=== PATIENT | male | born 1935 | race Caucasian/White ===

== ENCOUNTER 2017-02-14 07:54 | Inpatient (IN) ==
[2017-02-14] MEDS ORDERED: DOCUSATE SODIUM 100 MG CAPSULE PO PRN (15:35)
[2017-02-14] MEDS ORDERED: Oxycodone *IR* 5 MG TABLET PO PRN (15:35)
[2017-02-14 15:37] VITALS: BMI 23.7
[2017-02-14] MEDS ORDERED: FALL RISK - PHARMACY CONSULT MC PRN (16:23)
[2017-02-14] MEDS: HEPARIN 5,000unit/ml 1ml INJECTION SUB-Q SCH (16:51)
[2017-02-14] MEDS: CARVEDILOL 6.25 MG TABLET PO SCH (17:13)
[2017-02-14] MEDS: Oxycodone *IR* 5 MG TABLET PO SCH ×2 (18:07→21:26)
[2017-02-14] MEDS: ROSUVASTATIN 20 MG TABLET PO SCH (21:26)
[2017-02-14] MEDS: LISINOPRIL 2.5 MG TABLET PO SCH (21:27)
[2017-02-14] MEDS: POLYETHYL GLYCOL 3350 17gm PACKET PO SCH (21:50)
[2017-02-15] MEDS: HEPARIN 5,000unit/ml 1ml INJECTION SUB-Q SCH (01:00)
[2017-02-15] MEDS: Oxycodone *IR* 5 MG TABLET PO SCH ×6 (01:07→21:42)
[2017-02-15] MEDS: PANTOPRAZOLE 40 MG TABLET PO SCH (05:55)
[2017-02-15] MEDS: FERROUS SULFATE 324 MG TABLET PO SCH (08:28)
[2017-02-15] MEDS: FUROSEMIDE 20 MG TABLET PO SCH (08:28)
[2017-02-15] MEDS: POLYETHYL GLYCOL 3350 17gm PACKET PO SCH ×2 (08:28→20:48)
[2017-02-15] MEDS: CARVEDILOL 6.25 MG TABLET PO SCH ×2 (08:28→17:35)
[2017-02-15] MEDS: AMIODARONE 200 MG TABLET PO SCH (08:29)
[2017-02-15] MEDS ORDERED: HEPARIN SUB-Q 5,000 UNITS/0.5 ML INJECTION SQ SCH (09:00)
--- NOTE | 2017-02-15 13:19 | IRU History & Physical Report ---
[facility] Date: Chief complaint: My back hurts and I passed out HPI: History is obtained mainly from the patient and secondarily from transfer records as well as a discussion with the patient's spouse. Mr. Cervantes reports that he was in his driveway on 02/08/2017. He was moving a ladder and states that he climbed up on the ladder about 5 steps. He does not recall the next several minutes but recalls awakening on the ground after having fallen on some yarelis. He does have a small abrasion to the right upper forehead area and therefore believes that he may have hit his head. He does believe that he was unconscious during the time of his fall as he does not recall this. He did have pain in the back. He was transported to the emergency department at [facility] via EMS with a cervical collar. A CT scan of the lumbar spine was done on 02/08/2017 demonstrating an acute L1 burst fracture with involvement of all 3 columns as well as a T12 inferior endplate fracture and possible pedicular fracture. The patient was transported to [facility] in [place]. At that location he was evaluated by the hospitalist service as well as Dr. Molina, spine surgeon. He was also seen by his well reactivator operator Dr. Álvarez. 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 It was the surgeon's recommendation that the fractures be treated conservatively and a back brace was placed. It was recommended the patient be elevated no more than 20 from supine without the brace. Brace is to be applied while he is supine and then used all the time while he is up and about. Recommendations are against any twisting or turning or bending. With regard to his cardiac status, he does have history of congestive cardiomyopathy and valvular heart disease. He reports that he experienced a "heart attack" in 1993. Bypass was apparently done. Aortic valve replacement was performed at that time with a porcine valve. A new valve was placed in 2014 which is reportedly a bovine valve. According to the patient's , the patient's ejection fraction has been stable for at least the past 6 months and is poor. He does have an implanted pacemaker/ defibrillator. He has been on warfarin in the past for his atrial fibrillation but that caused excess bleeding according to the patient. For this reason he is on Eliquis and tolerates that well. He does report occasional episodes of angina. He does have chronic dyspnea with exertion. He does have lightheadedness and the current episode of syncope is likely related to his poor ejection fraction. He denies any peripheral edema. Echocardiogram done during hospitalization in [place] demonstrates ejection fraction 10-15 percent with severe mitral regurgitation. This is referenced in the notes from [place] but I do not have an actual copy of the echocardiogram. Patient is at risk for experiencing significant discomfort in the back from his burst fracture of L1 and T12. He is at high risk for pressure injury. He is at risk for constipation due to the use of pain medications which he is asking for on a regular basis. In addition, the patient needs to be taught how to ambulate safely with his significant lightheadedness related to his underlying congestive cardiomyopathy. Also has history of excessive bleeding and falls may result in significant injury and/or . The following medical conditions are noted and require physician monitoring and treatment. 1. Cardiomyopathy with ejection fraction 10-15 percent. He is at high risk for syncope and lightheadedness and hypotension in this regard. Patient reports episodes of angina which will need to be monitored as well. 2. Risk of bleeding secondary to the fracture and use of Eliquis. He is at risk for falls due to his lightheadedness. 3. Orthostatic hypotension due to #1. 4. Constipation management in conjunction with pain relief for his burst fractures. The following therapies will be needed: 1. Physical therapy: for transfers and ambulation and stairs. 2. Occupational therapy: for ADL's and transfers. 3. Medical management: for the above conditions. 4. 24 hour Rehabilitation Nursing to monitor and address the following: Orthostatic hypotension, back pain, constipation, dyspnea with activity, evidence of angina. Review of Systems - Constitutional Constitutional: Present: as per HPI, fatigue - EENMT Eyes: Absent: blurry vision, change in vision - Cardiovascular Cardiovascular: Present: chest pain, syncope, dyspnea on exertion, heart murmur. Absent: palpitations, orthopnea, edema Rhythm: Present: abnormal rhythm Vascular: Absent: intermittent claudication, pallor of an extermity, pedal edema - Respiratory Respiratory: Present: dyspnea, dyspnea on exertion. Absent: cough, hemoptysis, wheezing, pain on inspiration - Gastrointestinal Gastrointestinal: Present: constipation. Absent: abdominal pain, diarrhea, dyspepsia - Integumentary/Breasts Integumentary: Absent: alopecia - Neurological Neurological: Absent: abnormal gait, memory loss - Psychiatric Psychiatric: Absent: abnormal sleep pattern, anxiety, depression, difficulty concentrating PFS Patient Stated Medical History Hypertension Yes Myocardial Infarction Yes: 1993 Constipation Yes Hx Incontinence No Osteoarthritis Yes: bilateral knees Other Musculoskeletal Yes: T12-L1 Fx Medical History Updates: 1. 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 2. Valvular heart disease involving both mitral and aortic valves. 3. Cardiomyopathy with ejection fraction 1015 percent, likely on an ischemic basis. 4. Atrial fibrillation. 5. Constipation Surgical History: Aortic valve replacement, pacemaker/defibrillator placement, CABG, Cardiac Cath. 1. Aortic valve replacement 2 with most recent replacement in 2014 consisting of a bovine valve. 2. Pacemaker defibrillator placement in approximately . 3. Coronary artery bypass graft procedure 1993. 4. Reported stent placement. 5. Bilateral cataract procedure Family History: Father reportedly of heart attack at an uncertain age. Mother of heart disease as well. - Social History Smoking status: Never smoker second hand exposure: No Substance use type: does not use Alcohol intake: never Alcohol intake frequency: does not drink Housing: house Household members: spouse Current occupational status: retired Does patient use chewing tobacco?: No Current residence: Apartment/Private Home Medications Home Medications Medication Instructions Recorded Confirmed Type Amiodarone HCl 1 tab PO DAILY #0 07/05/15 02/14/17 History Carvedilol 6.25 mg PO BID #0 07/05/15 02/14/17 History Docusate Sodium [Stool Softener] 100 mg PO PM PRN #0 tab 07/05/15 02/14/17 History Furosemide [Lasix] 0.5 tab PO DAILY 02/08/17 02/14/17 History Rosuvastatin Calcium [Rosuvastatin 40 mg PO HS 02/08/17 02/14/17 History Calcium] Acetaminophen 325 - 650 mg PO Q6H PRN 02/14/17 02/14/17 History Ferrous Sulfate 325 mg PO DAILY 02/14/17 02/14/17 History HEPARIN 5,000unit/ml 1 ml SQ Q8H 02/14/17 02/14/17 History Lisinopril [Prinivil] 2.5 mg PO HS 08/06/17 08/06/17 History Oxycodone *Ir* [Roxicodone *Ir*] 5 mg PO Q4H PRN 02/14/17 02/14/17 History Pantoprazole Tab [Protonix Tab] 1 tab PO ACB 02/14/17 02/14/17 History Polyethylene Glycol 3350 [Miralax] 17 gm PO BID 02/14/17 02/14/17 History Allergies Allergy/AdvReac Type Severity Reaction Status Date / Time No Known Allergies Allergy Verified 02/14/17 15:25 Results IRU - Labs Labs: Hemoglobin down. Etiology not clear. Exam Vital Signs: Temperature 98.0 F 02/14/17 19:21 Pulse Rate 60 02/15/17 07:00 Respiratory Rate 18 02/15/17 07:00 Blood Pressure 121/67 02/15/17 07:00 Pulse Oximetry 96 02/15/17 07:00 Oxygen Delivery Method Room Air Height: 1.79 m Weight: 76.2 kg Body Mass Index: 23.7 - Constitutional Present: moderate distress - Routine HEENT Exam Head: Present: normocephalic Eye: Present: EOMI, PERRL ENT: Present: mucous membranes moist - Routine Neck Exam Present: supple, full ROM - Routine Respiratory Exam Present: dyspnea, CTA bilaterally. Absent: accessory muscle use, respiratory distress, wheezes - Routine Cardiovascular Exam Present: murmur (low pitched systolic/holosystolic murmur left sternal border. Systolic murmur second right interspace.), irregularly irregular - Routine Abdominal Exam Present: soft, normoactive bowel sounds, non distended, non tender - Routine Extremities Exam Present: non tender. Absent: cyanosis, edema - Routine Skin Exam Present: intact, dry. Absent: erythema - Routine Neurological Exam Present: alert, oriented X3, CN II-XII intact - Routine Psychiatric Exam Present: normal affect, normal thought process, cooperative, good insight, good judgment Sepsis Assessment - Evaluation Sepsis screening result: No Definite Risk SIRS Criteria: none Severe Sepsis: none seen - Focused Exam Date exam was performed: 02/15/17 Time exam was performed: 10:35 Respiratory exam: Present: dyspnea, CTA bilaterally. Absent: accessory muscle use Cardiovascular exam: Present: murmur, irregularly irregular IRU A/P (1) L1 vertebral fracture Qualifiers: Encounter type: subsequent encounter Fracture morphology: burst- stable Fracture healing: with routine healing Current visit: Yes Status: Acute Patient will avoid twisting, bending and will always wear the brace when elevated more than 20. Patient will work with physical therapy and occupational therapy to learn appropriate ways of dressing, transfers and ambulation. (2) Fracture of T12 vertebra Qualifiers: Encounter type: subsequent encounter Fracture type: closed Fracture morphology: burst- stable Current visit: Yes Status: Acute (3) Cardiomyopathy, ischemic Current visit: Yes Status: Chronic Ejection fraction is extremely low at 10-15 percent. He does have secondary orthostatic hypotension in this regard. Also complains of occasional angina. He will require education with energy saving techniques for ADLs and ambulation. Nursing will need to monitor him for angina recurrence or worsening heart failure. (4) ASHD (arteriosclerotic heart disease) Current visit: Yes Status: Chronic Patient status post bypass. He does report episodes of angina pectoris which will need to be monitored. (5) Aortic valve disorder Current visit: Yes Status: Chronic It is not clear if his initial lesion was stenosis or regurgitation. Nevertheless he has had 2 aortic valve procedures, the first being in 1993 which was a porcine valve. Valves replaced in 2014 with a bovine valve. He will be monitored for evidence of worsening heart failure or valvular heart disease. (6) Mitral regurgitation Qualifiers: Cardiac valve disease etiology: nonrheumatic Qualified Code(s): I34.0 - Nonrheumatic mitral (valve) insufficiency Current visit: Yes Status: Chronic Has severe mitral regurgitation based on echocardiogram. Currently does not have evidence of pulmonary edema nor excess fluid volume status. (7) Orthostatic hypotension Current visit: Yes Status: Acute (8) Anemia Qualifiers: Anemia type: unspecified type Qualified Code(s): D64.9 - Anemia, unspecified Current visit: Yes Status: Acute It is unclear how long he has had the anemia. We will assess this with iron studies and stool for Hemoccult. This could also be a factor in his orthostatic hypotension. In [place] on February 08 his hemoglobin was 11.5. On February 09 it was 10.1 and on February 10 it was 8.9. (9) Atrial fibrillation Qualifiers: Atrial fibrillation type: chronic Qualified Code(s): I48.2 - Chronic atrial fibrillation Current visit: Yes Status: Acute Patient has been on Eliquis at home. Although the patient is over 79 years old, his weight is above 60 kg and his creatinine remains normal. We will restart 5 mg twice daily and stop the heparin. DVT Prophylaxis: SCD's, Eliquis - Course Hospital Course: Kendell Vargas MD: - Interventions to Obtain Goals PT Treatment Plan: Balance/Proprioception, Functional Activities, Gait Training , Patient/Family Education, Therapeutic Exercise OT Treatment Plan: ADL (Basic Care), Balance Training, IADL, Pt./Family Education, Ther. Exercise for ADL
--- NOTE | 2017-02-15 13:39 | IRU 24Hr Post Admit Eval ---
24 Hr Post Admission Physical - Relevant Changes Relevant Changes: No Reviewed: I have reviewed the patient's information and concur with the finding and results of the pre-admission screen. Certification: I certify the patient for rehabilitation. - Patient Condition (1) L1 vertebral fracture Status: Acute Qualifiers: Encounter type: subsequent encounter Fracture morphology: burst- stable Fracture healing: with routine healing Code(s): S32.019A - Unspecified fracture of first lumbar vertebra, initial encounter for closed fracture Classification: Present on IRF Admission, IRF Tx That Should Address Diagnosis, Diagnosis Requiring Medical Follow Up, Other Contributing Factor (2) Fracture of T12 vertebra Status: Acute Qualifiers: Encounter type: subsequent encounter Fracture type: closed Fracture morphology: burst- stable Code(s): S22.089A - Unspecified fracture of T11-T12 vertebra, initial encounter for closed fracture Classification: Present on IRF Admission, IRF Tx That Should Address Diagnosis, Diagnosis Requiring Medical Follow Up (3) Cardiomyopathy, ischemic Status: Chronic Code(s): I25.5 - Ischemic cardiomyopathy Classification: Present on IRF Admission, IRF Tx That Should Address Diagnosis, Diagnosis Requiring Medical Follow Up (4) ASHD (arteriosclerotic heart disease) Status: Chronic Code(s): I25.10 - Atherosclerotic heart disease of [place] coronary artery without angina pectoris Classification: Present on IRF Admission, Diagnosis Requiring Medical Follow Up (5) Aortic valve disorder Status: Chronic Code(s): I35.9 - Nonrheumatic aortic valve disorder, unspecified Classification: Present on IRF Admission, Diagnosis Requiring Medical Follow Up (6) Mitral regurgitation Status: Chronic Qualifiers: Cardiac valve disease etiology: nonrheumatic Qualified Code(s): I34.0 - Nonrheumatic mitral (valve) insufficiency Code(s): I34.0 - Nonrheumatic mitral (valve) insufficiency Classification: Present on IRF Admission, Diagnosis Requiring Medical Follow Up (7) Orthostatic hypotension Status: Acute Code(s): I95.1 - Orthostatic hypotension Classification: Present on IRF Admission, IRF Tx That Should Address Diagnosis, Diagnosis Requiring Medical Follow Up (8) Anemia Status: Acute Qualifiers: Anemia type: unspecified type Qualified Code(s): D64.9 - Anemia, unspecified Code(s): D64.9 - Anemia, unspecified Classification: Present on IRF Admission, IRF Tx That Should Address Diagnosis, Diagnosis Requiring Medical Follow Up, Other Contributing Factor (9) Atrial fibrillation Status: Acute Qualifiers: Atrial fibrillation type: chronic Qualified Code(s): I48.2 - Chronic atrial fibrillation Code(s): I48.91 - Unspecified atrial fibrillation Classification: Present on IRF Admission, Diagnosis Requiring Medical Follow Up - Prior Functional Status Lives With: Spouse Residence Type: Apartment/Private Home Assitive Devices: None Prior Functional Status: Indep. at home or school, Used no assistive device - Current Functional Status Failed Alternative Therapy: Arrived from Acute Care Patient Requirements: The patient requires oversight by rehabilitation physician to manage their rehabilitation treatment plan and multidisciplinary approach to care that can only be provided in an IRF and requires a multidisciplinary approach to care, provided by professional PTs, OTs, STs, dieticians, RTs, rehabilitation nurses and is not available in lesser levels of care. Physical Therapy Minutes: 90 Occupational Therapy Minutes: 90 Therapy: The patient is to receive therapy at least 5 days a week. - Complications/Comorbidities Barriers to Discharge: Weakness, Endurance, Pain Control, Medical Limitation - Plan to Avoid Complications Plan to Avoid Complications: The patient cannot receive this care in a lesser intensive setting such as Correction or Outpatient Therapy due to the patient requiring the following : Careful therapy instruction to avoid additional spine damage, medical monitoring of his severe chronic medical conditions including his cardiomyopathy , likely ischemic in origin, orthostatic hypotension, angina pectoris .
[2017-02-15] MEDS: APIXABAN 5 MG TABLET PO SCH ×2 (14:42→20:43)
[2017-02-15] MEDS ORDERED: PNEUMOCOCCAL 13 VACCINE 0.5ml INJECTION IM ONE (15:48)
[2017-02-15] MEDS ORDERED: PNEUMOCOCCAL VAC ADMIN CHARGE INJ ONE (16:49)
[2017-02-15] MEDS ORDERED: LIDOCAINE 5% PATCH TOP SCH (18:58)
[2017-02-15] MEDS: LISINOPRIL 2.5 MG TABLET PO SCH ×2 (20:43→22:22)
[2017-02-15] MEDS: ROSUVASTATIN 20 MG TABLET PO SCH (20:52)
[2017-02-16] MEDS: Oxycodone *IR* 5 MG TABLET PO SCH ×6 (01:34→21:21)
[2017-02-16] MEDS: PANTOPRAZOLE 40 MG TABLET PO SCH (06:16)
[2017-02-16] MEDS: AMIODARONE 200 MG TABLET PO SCH (08:52)
[2017-02-16] MEDS: POLYETHYL GLYCOL 3350 17gm PACKET PO SCH ×2 (08:52→21:23)
[2017-02-16] MEDS: CARVEDILOL 6.25 MG TABLET PO SCH ×2 (08:52→17:36)
[2017-02-16] MEDS: FERROUS SULFATE 324 MG TABLET PO SCH (08:52)
[2017-02-16] MEDS: FUROSEMIDE 20 MG TABLET PO SCH (08:52)
[2017-02-16] MEDS: APIXABAN 5 MG TABLET PO SCH ×3 (08:52→21:22)
--- NOTE | 2017-02-16 11:01 | IRU Progress Note ---
- Subjective/Serverity of Illness Mr. Cervantes is interviewed and examined in his room after therapy. Previously I had also visited with the patient's . With regard to his back pain from his burst fracture of L1 and fracture of T12, he states that the current pain regimen is controlling his pain reasonably well. Continues on Percocet every 4 hours on a routine basis. I again cautioned him today not to try to sit up on his own and that we need to use the brace when he is up and about. Also cautioned him not to twist or turn. With regard to the burst fractures, he denies any numbness or tingling or any new leg weakness. Denies current incontinence. Secondly we discussed his anemia. His hemoglobin is 8.8. His had noted a large area of ecchymosis going down the back of his left leg. She believes it is getting worse. I told her this was very common since he has been on Eliquis and this may well account for his acute blood loss anemia. His ferritin and percent saturation etc. are pending. Stool for occult blood is pending at present. I was not able to observe the ecchymosis at present because he is on his back and I don't want to set him up without the brace on. Sometimes when he is up and about I will check that area. Thirdly we discussed his congestive cardiomyopathy. He denies significant shortness of breath with activity but then he is not doing a lot right now. He denies any chest pain and specifically denies any angina type symptoms. Denies any lightheadedness at present. Fourthly we discussed his constipation which is a significant issue. He has been using prune juice. Today I fed him some prune juice. He is on docusate sodium but only as needed. We will make this regular doses twice daily. He remains on MiraLAX. Exam Vital Signs: Temperature 98.2 F 02/16/17 07:43 Pulse Rate 61 02/16/17 07:43 Respiratory Rate 16 02/16/17 07:43 Blood Pressure 125/65 02/16/17 07:43 Pulse Oximetry 98 02/16/17 07:43 Oxygen Delivery Method Room Air Height: 1.79 m Weight: 76.2 kg Body Mass Index: 23.7 - Constitutional Present: mild distress Comments: The patient is awake, alert and oriented and in mild distress regarding his back pain. Pupils are equal. The neck is supple. Chest: Clear to auscultation bilaterally. Cor: Irregular rhythm with systolic murmurs as noted before. These are about grade 3/6 left sternal border and second right interspace. They are a low pitched nearly holosystolic murmur. Abd: soft with normo-active bowel sounds. There are no masses, no tenderness and no guarding. Extremities: No edema is noted. He has good bowel sounds. I attempted to look at the back of his left leg. However due to his fractures I did not sit him up and we will await that exam until he is more up and about. - Routine HEENT Exam Head: Present: normocephalic - Routine Respiratory Exam Present: CTA bilaterally - Routine Cardiovascular Exam Present: S1, S2, murmur (please see description above.), irregularly irregular - Routine Abdominal Exam Present: soft, normoactive bowel sounds, non distended - Routine Skin Exam Present: intact - Routine Neurological Exam Present: alert, oriented X3, CN II-XII intact - Routine Psychiatric Exam Present: normal affect, normal thought process, cooperative. Absent: good insight, good judgment Results IRU - Labs Labs: His iron studies are drawn but are pending at the time of this dictation. His hemoglobin is stable. Sepsis Assessment - Evaluation Sepsis screening result: No Definite Risk IRU A/P (1) L1 vertebral fracture Qualifiers: Encounter type: subsequent encounter Fracture morphology: burst- stable Fracture healing: with routine healing Current visit: Yes Status: Acute Patient continues to require regular doses of Percocet for his burst fracture of L1 and T12. Transfers etc. are done with the back brace on. Continues to work with therapy and improving. (2) Fracture of T12 vertebra Qualifiers: Encounter type: subsequent encounter Fracture type: closed Fracture morphology: burst- stable Current visit: Yes Status: Acute (3) Cardiomyopathy, ischemic Current visit: Yes Status: Chronic Avoidance of exertion is important. Lungs are currently clear. Heart exam is unchanged and demonstrates murmurs as before. (4) ASHD (arteriosclerotic heart disease) Current visit: Yes Status: Chronic Denies current chest pains. (5) Aortic valve disorder Current visit: Yes Status: Chronic (6) Mitral regurgitation Qualifiers: Cardiac valve disease etiology: nonrheumatic Qualified Code(s): I34.0 - Nonrheumatic mitral (valve) insufficiency Current visit: Yes Status: Chronic Patient has history of known severe mitral regurgitation. (7) Orthostatic hypotension Current visit: Yes Status: Acute Blood pressure down to 108 at times systolic. Other times around 120. Denies current symptoms of hypotension. (8) Anemia Qualifiers: Anemia type: other cause Other causes of anemia: acute posthemorrhagic Qualified Code(s): D62 - Acute posthemorrhagic anemia Current visit: Yes Status: Acute Patient has acute posthemorrhagic anemia most likely. Does have a large area of ecchymosis involving the left posterior thigh according to his . His iron studies are pending. I will examine this area when he is up and about and I can safely do that. (9) Atrial fibrillation Qualifiers: Atrial fibrillation type: chronic Qualified Code(s): I48.2 - Chronic atrial fibrillation Current visit: Yes Status: Acute It is noted that he is on Eliquis 2.5 mg twice daily at home according to his . I will therefore reduce the dose to that at present. (10) Slow transit constipation Current visit: Yes Status: Acute Patient is complaining of constipation. This is made worse by his Percocet and lumbar and thoracic spine fractures. He is on MiraLAX. He is taking prune juice. We will add regular doses of stool softener. DVT Prophylaxis: SCD's, Eliquis - Course Hospital Course: Kendell Vargas MD: 02/16/17 11:06 Continues to work with therapy. Back pain is controlled but he is on regular doses of Percocet every 4 hours. Constipation is an issue. Congestive cardiomyopathy noted with ejection fraction 10-15 percent. Need to limit exertion in this regard. Remains on SARIAH inhibitor. We will add Colace on a regular basis. Today I decreased his Eliquis to 2.5 mg twice daily based on his previous dosage. - Interventions to Obtain Goals PT Treatment Plan: Balance/Proprioception, Functional Activities, Gait Training , Patient/Family Education, Therapeutic Exercise OT Treatment Plan: ADL (Basic Care), Balance Training, IADL, Pt./Family Education, Ther. Exercise for ADL Goals Progress/Modifications: Today we reduce the Eliquis 2.5 mg twice daily based on his previous dose. Secondly we added on Colace twice daily because of his severe slow transit constipation made worse by recent lumbar spine fracture, thoracic spine fracture and use of pain medication. His congestive cardiomyopathy continues to be a concern. His ejection fraction is extremely low. His exercise tolerance is very poor. Please note that the patient's individual plan of care was developed and documented today, requiring review of therapy notes, medical conditions and anticipated functional recovery. Please see separate document. This required an additional level of medical decision making and an additional time of approximately 15 minutes on top of the time with patient and documentation.
--- NOTE | 2017-02-16 11:13 | IRU Plan of Care ---
[facility] Overall Plan of Care - Date Date: 02/16/17 - Patient Impairments (1) L1 vertebral fracture Qualifiers: Encounter type: subsequent encounter Fracture morphology: burst- stable Fracture healing: with routine healing Code(s): S32.019A - Unspecified fracture of first lumbar vertebra, initial encounter for closed fracture Status: Acute Classification: Present on IRF Admission, IRF Tx That Should Address Diagnosis, Diagnosis Requiring Medical Follow Up, Other Contributing Factor (2) Fracture of T12 vertebra Qualifiers: Encounter type: subsequent encounter Fracture type: closed Fracture morphology: burst- stable Code(s): S22.089A - Unspecified fracture of T11-T12 vertebra, initial encounter for closed fracture Status: Acute Classification: Present on IRF Admission, IRF Tx That Should Address Diagnosis, Diagnosis Requiring Medical Follow Up (3) Cardiomyopathy, ischemic Code(s): I25.5 - Ischemic cardiomyopathy Status: Chronic Classification: Present on IRF Admission, IRF Tx That Should Address Diagnosis, Diagnosis Requiring Medical Follow Up (4) ASHD (arteriosclerotic heart disease) Code(s): I25.10 - Atherosclerotic heart disease of [place] coronary artery without angina pectoris Status: Chronic Classification: Present on IRF Admission, Diagnosis Requiring Medical Follow Up (5) Aortic valve disorder Code(s): I35.9 - Nonrheumatic aortic valve disorder, unspecified Status: Chronic Classification: Present on IRF Admission, Diagnosis Requiring Medical Follow Up (6) Mitral regurgitation Qualifiers: Cardiac valve disease etiology: nonrheumatic Qualified Code(s): I34.0 - Nonrheumatic mitral (valve) insufficiency Code(s): I34.0 - Nonrheumatic mitral (valve) insufficiency Status: Chronic Classification: Present on IRF Admission, Diagnosis Requiring Medical Follow Up (7) Orthostatic hypotension Code(s): I95.1 - Orthostatic hypotension Status: Acute Classification: Present on IRF Admission, IRF Tx That Should Address Diagnosis, Diagnosis Requiring Medical Follow Up (8) Anemia Qualifiers: Anemia type: other cause Other causes of anemia: acute posthemorrhagic Qualified Code(s): D62 - Acute posthemorrhagic anemia Code(s): D64.9 - Anemia, unspecified Status: Acute Classification: Present on IRF Admission, IRF Tx That Should Address Diagnosis, Diagnosis Requiring Medical Follow Up, Other Contributing Factor (9) Atrial fibrillation Qualifiers: Atrial fibrillation type: chronic Qualified Code(s): I48.2 - Chronic atrial fibrillation Code(s): I48.91 - Unspecified atrial fibrillation Status: Acute Classification: Present on IRF Admission, Diagnosis Requiring Medical Follow Up (10) Slow transit constipation Code(s): K59.01 - Slow transit constipation Status: Acute Classification: Present on IRF Admission, IRF Tx That Should Address Diagnosis, Diagnosis Requiring Medical Follow Up - Relevant Changes Relevant Changes: No Reviewed: I have reviewed the patient's information and concur with the finding and results of the pre-admission screen. Certification: I certify the patient for rehabilitation. 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 - FIM Ambulation Distance: 168 Wheelchair Propulsion Distance: 98 Toileting Adaptive Equipment: Grab Bars Number of Continent Voids: 1 Number of Incontinent Voids: 0 - Current Functional Status Failed Alternative Therapy: Arrived from Acute Care Patient Requires: The patient requires oversight by rehabilitation physician to manage their rehabilitation treatment plan and multidisciplinary approach to care that can only be provided in an IRF and requires a multidisciplinary approach to care, provided by professional PTs, OTs, STs, dieticians, RTs, rehabilitation nurses and is not available in lesser levels of care. Physical Therapy Minutes: 90 Occupational Therapy Minutes: 90 Therapy: The patient is to receive therapy at least 5 days a week. - Anticipated LOS/Outcomes Anticipated Functional Outcome: It is anticipated the patient will be able to return home with increased safety awareness to avoid falls secondary to his orthostatic hypotension, as well as being able to don the back brace in a safe manner possibly with assistance. He will be able to transfer and ambulate with modified independent functioning. In addition we anticipate resolution of his slow transit constipation and adequate control of the back pain. Anticipated Length of Stay: 7 Anticipated DC Destination: Home, Self Senior Care Safety Plan: The patient will be provided with the development of a Home Safety Plan for return to a home or home-like environment and and to ensure safety post discharge. - Plan to Avoid Complications Barriers to Attaining Goals: Weakness, Endurance, Pain Control, Medical Limitation Plan to Avoid Complications: The patient cannot receive this care in a lesser intensive setting such as Alf or Outpatient Therapy due to the patient requiring the following : Orthostatic hypotension, ischemic congestive cardiomyopathy with markedly reduced exercise tolerance, acute posthemorrhagic blood loss anemia, severe constipation related to pain medication usage, recent burst fracture of L1 and fracture of T12. For these reasons the patient requires a multidisciplinary, intensive and individualized course of therapy to return him to his former level of functioning. He needs to get used to the back brace and learn how to safely don and doff that.
--- NOTE | 2017-02-16 12:20 | IRU Team Meeting ---
IRU Team Meeting - Nursing Vital Signs: Vital Signs - 24 hr 02/15/17 15:00 02/15/17 21:48 02/16/17 07:43 Temperature 98.4 F 98.1 F 98.2 F Pulse Rate 62 69 61 Respiratory Rate 18 18 16 Blood Pressure 108/64 108/69 125/65 Pulse Oximetry 96 96 98 Current Medications: Acetaminophen (Tylenol) 325 - 650 mg PO Q6H PRN PRN Reason: Pain Amiodarone HCl (Pacerone) 200 mg PO DAILY [facility] Last Admin: 02/16/17 08:52 Dose: 200 mg Apixaban (Eliquis) 2.5 mg PO BID [facility] Last Admin: 02/16/17 11:36 Dose: Not Given Carvedilol (Coreg) 6.25 mg PO BIDWM [facility] Last Admin: 02/16/17 08:52 Dose: 6.25 mg Docusate Sodium (Colace) 100 mg PO BID [facility] Ferrous Sulfate (Feosol) 324 mg PO WB [facility] Last Admin: 02/16/17 08:52 Dose: 324 mg Furosemide (Lasix) 10 mg PO DAILY [facility] Last Admin: 02/16/17 08:52 Dose: 10 mg Lidocaine (Lidoderm) 1 patch TOP 2100 [facility] Lidocaine HCl/Dextrose (Lidoderm Patch Removal) 1 removal TOP 0900 [facility] Lisinopril (Prinivil) 2.5 mg PO HS [facility] Last Admin: 02/15/17 22:22 Dose: Not Given Oxycodone HCl (Roxicodone *Ir*) 5 mg PO Q4H [facility] Last Admin: 02/16/17 10:01 Dose: 5 mg Pantoprazole Sodium (Protonix Tab) 40 mg PO ACB [facility] Last Admin: 02/16/17 06:16 Dose: 40 mg Polyethylene Glycol (Miralax) 17 gm PO BID [facility] Last Admin: 02/16/17 08:52 Dose: 17 gm Rosuvastatin Calcium (Crestor) 40 mg PO 2100 [facility] Last Admin: 02/15/17 20:52 Dose: 40 mg Comments: On percocet q 4 hours scheduled. Pain in the back 5-6/10. Constipation. Has acute blood loss anemia (large ecchymosis down left leg. Ischemic cardiomyopathy , orthostatic hypotension. - Physical Therapy Comments: Transfers: min assist. Walking with walker with CGA. Needs much strength and endurance. - Occupational Therapy Grooming Ability: Stand By Assist/Supervision Lower Body Dressing Comment: Max assist for dressing in view of the brace. CGA for toilet transfers. Requires freq breaks. - Care Plan Anticipated Length of Stay: 7 Anticipated DC Destination: Home, Self Care Interventions/Goals: Barriers to discharge: cognition, pain control, hypotension/lightheadedness. Goal: more consistent with transfers and safety, family training with the brace , control of anemia
[2017-02-16] MEDS: LISINOPRIL 2.5 MG TABLET PO SCH (21:22)
[2017-02-16] MEDS: DOCUSATE SODIUM 100 MG CAPSULE PO SCH (21:22)
[2017-02-16] MEDS: ROSUVASTATIN 20 MG TABLET PO SCH (21:22)
[2017-02-16] MEDS: LIDOCAINE 5% PATCH TOP SCH (21:23)
[2017-02-17] MEDS: Oxycodone *IR* 5 MG TABLET PO SCH ×6 (02:19→23:08)
[2017-02-17] MEDS: PANTOPRAZOLE 40 MG TABLET PO SCH (06:28)
[2017-02-17] MEDS: LIDOCAINE PATCH REMOVAL TOP SCH (08:30)
--- NOTE | 2017-02-17 09:59 | IRU Progress Note ---
- Subjective/Serverity of Illness Mr. Cervantes was interviewed and examined today. He seemed to be more confused. He repeatedly asked why he was here and what the goal was. He does admit that he has some back pain. In addition he reports some chest discomfort. He was not able to quantify this nor to specify if it was sharp or dull. He tended to related to the brace. However it did come on with activity he states. It is not clear if it is severe or not. He does not appear to be in acute distress. Does have dyspnea and easy fatigability with walking. With regard to his back pain, he is getting Percocet every 4 hours. Because of his confusion we will reduce that to every 6 hours. If necessary we can supplement with Tylenol possibly. Continues to have anemia. Hemoglobin is variable and is now down to 8.8 which was initially. His iron studies would argue for acute blood loss rather than chronic anemia. Likely this is related to the large amount of ecchymosis in his leg. Next we discussed his constipation. He did have a bowel movement this morning. The stool is Hemoccult negative. His markedly reduced ejection fraction is again noted. His blood pressure today is 80 while he is sitting at the table. Exam Vital Signs: Temperature 97.5 F 02/17/17 09:49 Pulse Rate 60 02/17/17 09:49 Respiratory Rate 16 02/17/17 09:49 Blood Pressure 123/68 02/17/17 09:49 Pulse Oximetry 97 02/17/17 09:49 Oxygen Delivery Method Room Air Height: 1.79 m Weight: 76.2 kg Body Mass Index: 23.7 - Constitutional Present: mild distress Comments: The patient is awake, alert and oriented and in no acute distress. Pupils are equal. The neck is supple. Chest: Clear to auscultation bilaterally. Cor: irregular rhythm with systolic murmurs as before Abd: soft with normo-active bowel sounds. There are no masses, no tenderness and no guarding. Extremities: No edema is noted. No cyanosis is present. He seems more confused. Not sure he is oriented today. - Routine HEENT Exam Head: Present: normocephalic Eye: Present: EOMI ENT: Present: mucous membranes moist - Routine Neck Exam Present: supple - Routine Respiratory Exam Present: CTA bilaterally - Routine Cardiovascular Exam Present: S1, S2, murmur, irregularly irregular - Routine Abdominal Exam Present: soft, normoactive bowel sounds, non distended, non tender - Routine Skin Exam Present: intact - Routine Neurological Exam Present: alert, CN II-XII intact. Absent: oriented X3, sensory deficit, motor deficit, facial asymmetry - Routine Psychiatric Exam Present: normal affect (Confused a bit. No slurred speech.), anxious. Absent: normal thought process Results IRU - Labs Labs: Reviewed stool for Hemoccult, iron studies, hemoglobin. Sepsis Assessment - Evaluation Sepsis screening result: No Definite Risk IRU A/P (1) L1 vertebral fracture Qualifiers: Encounter type: subsequent encounter Fracture morphology: burst- stable Fracture healing: with routine healing Current visit: Yes Status: Acute Continues to wear the brace if he is up more than 20. Progressing slowly with therapy. Continues to have discomfort. However we need to reduce the Percocet dose in view of his confusion. (2) Fracture of T12 vertebra Qualifiers: Encounter type: subsequent encounter Fracture type: closed Fracture morphology: burst- stable Current visit: Yes Status: Acute (3) Cardiomyopathy, ischemic Current visit: Yes Status: Chronic Has reduced endurance. Seem to be doing a bit better yesterday regarding endurance and shortness of breath. Does have some chest discomfort but this is nonspecific. He is unable to describe it well. (4) ASHD (arteriosclerotic heart disease) Current visit: Yes Status: Chronic (5) Aortic valve disorder Current visit: Yes Status: Chronic Heart murmurs as before consistent with both aortic stenosis and mitral regurgitation. (6) Mitral regurgitation Qualifiers: Cardiac valve disease etiology: nonrheumatic Qualified Code(s): I34.0 - Nonrheumatic mitral (valve) insufficiency Current visit: Yes Status: Chronic (7) Orthostatic hypotension Current visit: Yes Status: Acute Blood pressure today is 80 in the sitting position. This may account for some of his confusion and memory issues as well. (8) Anemia Qualifiers: Anemia type: other cause Other causes of anemia: acute posthemorrhagic Qualified Code(s): D62 - Acute posthemorrhagic anemia Current visit: Yes Status: Acute His hemoglobin is stable. The iron studies would argue for an acute blood loss rather than chronic anemia. This is most likely related to the ecchymosis in his left leg. He is not at a point that I would recommend transfusion however. (9) Atrial fibrillation Qualifiers: Atrial fibrillation type: chronic Qualified Code(s): I48.2 - Chronic atrial fibrillation Current visit: Yes Status: Acute (10) Slow transit constipation Current visit: Yes Status: Acute DVT Prophylaxis: SCD's, Eliquis - Course Hospital Course: Kendell Vargas MD: 02/16/17 11:06 Continues to work with therapy. Back pain is controlled but he is on regular doses of Percocet every 4 hours. Constipation is an issue. Congestive cardiomyopathy noted with ejection fraction 10-15 percent. Need to limit exertion in this regard. Remains on SARIAH inhibitor. We will add Colace on a regular basis. Today I decreased his Eliquis to 2.5 mg twice daily based on his previous dosage. 02/17/17 10:02 Some decline with regard to his cognition today. Likely this is a "delirium" related to hypotension plus pain medication. Reduce Percocet 4 times daily. Continue to work with therapy. - Interventions to Obtain Goals PT Treatment Plan: Balance/Proprioception, Functional Activities, Gait Training , Patient/Family Education, Therapeutic Exercise OT Treatment Plan: ADL (Basic Care), Balance Training, IADL, Pt./Family Education, Ther. Exercise for ADL
[2017-02-17] MEDS: DOCUSATE SODIUM 100 MG CAPSULE PO SCH ×2 (10:02→20:38)
[2017-02-17] MEDS: FERROUS SULFATE 324 MG TABLET PO SCH (10:02)
[2017-02-17] MEDS: CARVEDILOL 6.25 MG TABLET PO SCH ×2 (10:02→17:47)
[2017-02-17] MEDS: APIXABAN 5 MG TABLET PO SCH ×2 (10:02→20:27)
[2017-02-17] MEDS: POLYETHYL GLYCOL 3350 17gm PACKET PO SCH ×2 (10:03→20:27)
[2017-02-17] MEDS: FUROSEMIDE 20 MG TABLET PO SCH (10:03)
[2017-02-17] MEDS: AMIODARONE 200 MG TABLET PO SCH (10:03)
[2017-02-17] MEDS: ROSUVASTATIN 20 MG TABLET PO SCH (20:27)
[2017-02-17] MEDS: LISINOPRIL 2.5 MG TABLET PO SCH ×2 (20:27→22:47)
[2017-02-17] MEDS: LIDOCAINE 5% PATCH TOP SCH (20:38)
[2017-02-18] MEDS: PANTOPRAZOLE 40 MG TABLET PO SCH (06:52)
[2017-02-18] MEDS: Oxycodone *IR* 5 MG TABLET PO SCH (06:52)
[2017-02-18] MEDS: CARVEDILOL 6.25 MG TABLET PO SCH (08:48)
[2017-02-18] MEDS: FERROUS SULFATE 324 MG TABLET PO SCH (08:49)
[2017-02-18] MEDS: DOCUSATE SODIUM 100 MG CAPSULE PO SCH ×2 (08:49→22:30)
[2017-02-18] MEDS: APIXABAN 5 MG TABLET PO SCH ×2 (08:49→22:30)
[2017-02-18] MEDS: FUROSEMIDE 20 MG TABLET PO SCH (08:49)
[2017-02-18] MEDS: AMIODARONE 200 MG TABLET PO SCH (08:50)
--- NOTE | 2017-02-18 11:12 | IRU Progress Note ---
- Subjective/Serverity of Illness Mr. Cervantes continues to report lightheadedness with activity. Blood pressure varies from 90 systolic up to 120 or so. Has a very poor ejection fraction of around 10-[address] Caceres has been contacted and is adjusting medications in this regard. He continues to be somewhat confused off and on. Could be related to his hypotension versus the oxycodone. We'll stop oxycodone and try tramadol. With regard to therapies, he is improving with regard to transfers from moderate to maximal assistance to standby assistance. His hypotension and lightheadedness do play a role and impede his progress. He does report dyspnea with activity chronically. Also reports vague nonspecific chest discomfort. I am uncertain if this represents true angina or not. He finds it difficult to describe. Exam Vital Signs: Temperature 97.9 F 02/18/17 08:00 Pulse Rate 61 02/18/17 08:00 Respiratory Rate 18 02/18/17 08:00 Blood Pressure 125/65 02/18/17 08:00 Pulse Oximetry 95 02/18/17 08:00 Oxygen Delivery Method Room Air Height: 1.79 m Weight: 76.2 kg Body Mass Index: 23.7 - Constitutional Present: mild distress Comments: The patient is awake, alert and oriented when I visit with him and in no acute distress. However nurses have reported confusion and repeated question asking. Pupils are equal. The neck is supple. Chest: Clear to auscultation bilaterally. Cor: RR with previously noted murmurs. He does have hx of at fib but today his rhythm sounds regular. Abd: soft with normo-active bowel sounds. There are no masses, no tenderness and no guarding. Extremities: No edema is noted. Sepsis Assessment - Evaluation Sepsis screening result: No Definite Risk IRU A/P (1) L1 vertebral fracture Qualifiers: Encounter type: subsequent encounter Fracture morphology: burst- stable Fracture healing: with routine healing Current visit: Yes Status: Acute He is wearing his back brace all the time unless he is flat in bed. Pain appears to be reasonably well controlled. However because of his confusion (as well as lightheadedness) we will reduce the oxycodone to tramadol and see if that will adequately help him and help his confusion. (2) Fracture of T12 vertebra Qualifiers: Encounter type: subsequent encounter Fracture type: closed Fracture morphology: burst- stable Current visit: Yes Status: Acute (3) Cardiomyopathy, ischemic Current visit: Yes Status: Chronic Blood pressures continue to be variable. He is lightheaded much of the time. This impedes his therapy. (4) ASHD (arteriosclerotic heart disease) Current visit: Yes Status: Chronic While he does report some degree of chest pain, I am not convinced this represents angina. He finds it difficult to specifically describe this. We will continue to monitor. (5) Aortic valve disorder Current visit: Yes Status: Chronic (6) Mitral regurgitation Qualifiers: Cardiac valve disease etiology: nonrheumatic Qualified Code(s): I34.0 - Nonrheumatic mitral (valve) insufficiency Current visit: Yes Status: Chronic (7) Orthostatic hypotension Current visit: Yes Status: Acute (8) Anemia Qualifiers: Anemia type: other cause Other causes of anemia: acute posthemorrhagic Qualified Code(s): D62 - Acute posthemorrhagic anemia Current visit: Yes Status: Acute (9) Atrial fibrillation Qualifiers: Atrial fibrillation type: chronic Qualified Code(s): I48.2 - Chronic atrial fibrillation Current visit: Yes Status: Chronic He remains on Eliquis (10) Slow transit constipation Current visit: Yes Status: Acute DVT Prophylaxis: SCD's, Eliquis - Course Hospital Course: Kendell Vargas MD: 02/16/17 11:06 Continues to work with therapy. Back pain is controlled but he is on regular doses of Percocet every 4 hours. Constipation is an issue. Congestive cardiomyopathy noted with ejection fraction 10-15 percent. Need to limit exertion in this regard. Remains on SARIAH inhibitor. We will add Colace on a regular basis. Today I decreased his Eliquis to 2.5 mg twice daily based on his previous dosage. 02/17/17 10:02 Some decline with regard to his cognition today. Likely this is a "delirium" related to hypotension plus pain medication. Reduce Percocet 4 times daily. Continue to work with therapy. 02/18/17 11:14 Still has episodes of confusion. Stop Percocet and start tramadol today. Continued work with him. Does have lightheadedness and hypotension which impedes therapy progress. - Interventions to Obtain Goals PT Treatment Plan: Balance/Proprioception, Functional Activities, Gait Training , Patient/Family Education, Therapeutic Exercise OT Treatment Plan: ADL (Basic Care), Balance Training, IADL, Pt./Family Education, Ther. Exercise for ADL
[2017-02-18] MEDS: LIDOCAINE PATCH REMOVAL TOP SCH (11:19)
[2017-02-18] MEDS: TRAMADOL 50 MG TABLET PO SCH ×4 (12:08→22:32)
[2017-02-18] MEDS: POLYETHYL GLYCOL 3350 17gm PACKET PO SCH ×2 (12:08→22:31)
[2017-02-18] MEDS ORDERED: FALL RISK - PHARMACY CONSULT MC PRN (12:50)
[2017-02-18] MEDS: ROSUVASTATIN 20 MG TABLET PO SCH (22:30)
[2017-02-18] MEDS: LIDOCAINE 5% PATCH TOP SCH (22:31)
[2017-02-18] MEDS: LISINOPRIL 2.5 MG TABLET PO SCH (22:31)
[2017-02-18] MEDS: MELATONIN 1 MG TABLET PO SCH (22:32)
[2017-02-19] MEDS: PANTOPRAZOLE 40 MG TABLET PO SCH (06:15)
[2017-02-19] MEDS: CARVEDILOL 6.25 MG TABLET PO SCH ×3 (08:49→18:00)
[2017-02-19] MEDS: FERROUS SULFATE 324 MG TABLET PO SCH (09:22)
[2017-02-19] MEDS: APIXABAN 5 MG TABLET PO SCH ×2 (09:23→21:46)
[2017-02-19] MEDS: DOCUSATE SODIUM 100 MG CAPSULE PO SCH ×2 (09:23→21:46)
[2017-02-19] MEDS: FUROSEMIDE 20 MG TABLET PO SCH (09:25)
[2017-02-19] MEDS: AMIODARONE 200 MG TABLET PO SCH (09:28)
[2017-02-19] MEDS: POLYETHYL GLYCOL 3350 17gm PACKET PO SCH ×2 (09:28→21:46)
[2017-02-19] MEDS: TRAMADOL 50 MG TABLET PO SCH ×4 (09:32→21:47)
[2017-02-19] MEDS: LIDOCAINE PATCH REMOVAL TOP SCH (10:11)
[2017-02-19] MEDS: LISINOPRIL 2.5 MG TABLET PO SCH ×2 (21:46→21:54)
[2017-02-19] MEDS: MELATONIN 1 MG TABLET PO SCH (21:47)
[2017-02-19] MEDS: ROSUVASTATIN 20 MG TABLET PO SCH (21:48)
[2017-02-19] MEDS: LIDOCAINE 5% PATCH TOP SCH (21:48)
[2017-02-20] MEDS: PANTOPRAZOLE 40 MG TABLET PO SCH (06:49)
[2017-02-20] MEDS: LIDOCAINE PATCH REMOVAL TOP SCH (09:46)
[2017-02-20] MEDS: CARVEDILOL 6.25 MG TABLET PO SCH ×2 (09:46→17:38)
[2017-02-20] MEDS: FUROSEMIDE 20 MG TABLET PO SCH (09:47)
[2017-02-20] MEDS: FERROUS SULFATE 324 MG TABLET PO SCH (09:47)
[2017-02-20] MEDS: POLYETHYL GLYCOL 3350 17gm PACKET PO SCH ×3 (09:47→20:37)
[2017-02-20] MEDS: APIXABAN 5 MG TABLET PO SCH ×2 (09:47→20:34)
[2017-02-20] MEDS: AMIODARONE 200 MG TABLET PO SCH (09:48)
[2017-02-20] MEDS: TRAMADOL 50 MG TABLET PO SCH ×3 (09:48→18:05)
[2017-02-20] MEDS: DOCUSATE SODIUM 100 MG CAPSULE PO SCH ×2 (09:48→20:36)
[2017-02-20] MEDS: MELATONIN 1 MG TABLET PO SCH (20:34)
[2017-02-20] MEDS: ROSUVASTATIN 20 MG TABLET PO SCH (20:34)
[2017-02-20] MEDS: LIDOCAINE 5% PATCH TOP SCH (20:36)
[2017-02-20] MEDS: LISINOPRIL 2.5 MG TABLET PO SCH (20:37)
[2017-02-21] MEDS: MELATONIN 1 MG TABLET PO SCH ×2 (01:38→22:13)
[2017-02-21] MEDS: TRAMADOL 50 MG TABLET PO SCH ×5 (01:38→22:15)
[2017-02-21] MEDS: PANTOPRAZOLE 40 MG TABLET PO SCH (06:47)
[2017-02-21] MEDS ORDERED: FALL RISK - PHARMACY CONSULT MC PRN (08:49)
[2017-02-21] MEDS: APIXABAN 5 MG TABLET PO SCH ×2 (09:28→22:11)
[2017-02-21] MEDS: FERROUS SULFATE 324 MG TABLET PO SCH (09:28)
[2017-02-21] MEDS: AMIODARONE 200 MG TABLET PO SCH (09:28)
[2017-02-21] MEDS: FUROSEMIDE 20 MG TABLET PO SCH (09:28)
[2017-02-21] MEDS: DOCUSATE SODIUM 100 MG CAPSULE PO SCH ×2 (09:29→22:11)
[2017-02-21] MEDS: CARVEDILOL 6.25 MG TABLET PO SCH ×2 (09:29→17:55)
[2017-02-21] MEDS: POLYETHYL GLYCOL 3350 17gm PACKET PO SCH ×2 (09:30→22:12)
[2017-02-21] MEDS: LIDOCAINE PATCH REMOVAL TOP SCH (09:33)
[2017-02-21] MEDS: LISINOPRIL 2.5 MG TABLET PO SCH (22:12)
[2017-02-21] MEDS: LIDOCAINE 5% PATCH TOP SCH (22:12)
[2017-02-21] MEDS: ROSUVASTATIN 20 MG TABLET PO SCH (22:13)
[2017-02-22] MEDS: PANTOPRAZOLE 40 MG TABLET PO SCH (05:40)
[2017-02-22] MEDS: DOCUSATE SODIUM 100 MG CAPSULE PO SCH ×2 (10:02→21:25)
[2017-02-22] MEDS: APIXABAN 5 MG TABLET PO SCH ×2 (10:03→21:26)
[2017-02-22] MEDS: FERROUS SULFATE 324 MG TABLET PO SCH (10:04)
[2017-02-22] MEDS: CARVEDILOL 6.25 MG TABLET PO SCH ×2 (10:04→20:33)
[2017-02-22] MEDS: FUROSEMIDE 20 MG TABLET PO SCH (10:05)
[2017-02-22] MEDS: LIDOCAINE PATCH REMOVAL TOP SCH (10:06)
[2017-02-22] MEDS: POLYETHYL GLYCOL 3350 17gm PACKET PO SCH ×2 (10:07→21:27)
[2017-02-22] MEDS: AMIODARONE 200 MG TABLET PO SCH (10:07)
[2017-02-22] MEDS: TRAMADOL 50 MG TABLET PO SCH ×4 (10:12→21:24)
--- NOTE | 2017-02-22 10:33 | IRU Progress Note ---
- Subjective/Serverity of Illness Mr. Cervantes continues to very slowly progress with therapy. He has improved from maximal assist to moderate assist for dressing. He requires frequent rest breaks. He reports dyspnea with activity. Denies current chest pain. Right now he is resting in bed after breakfast. He developed some back pain while he was sitting at the table. He is worried about when he needs to put on the brace. I again reminded him he needs to be on if he is at 20 or more from horizontal. He is able to ambulate with standby assistance/supervision. He is walking with a walker. Again he does require multiple rest breaks related to his underlying congestive cardiomyopathy with ejection fraction around 10-15%. Exam Vital Signs: Temperature 98.2 F 02/21/17 20:00 Pulse Rate 60 02/21/17 20:00 Respiratory Rate 16 02/21/17 20:00 Blood Pressure 104/63 02/21/17 20:00 Pulse Oximetry 97 02/21/17 20:00 Oxygen Delivery Method Room Air Height: 1.79 m Weight: 71.7 kg Body Mass Index: 23.7 - Constitutional Present: moderate distress Comments: The patient is awake, alert and oriented and in no acute distress. Pupils are equal. The neck is supple. Chest: Clear to auscultation bilaterally. Cor: irregular rhythm with systolic murmurs as before Abd: soft with normo-active bowel sounds. There are no masses, no tenderness and no guarding. Extremities: No edema is noted. He is lying in bed at present after being at the dining area. Has some back pain , improved with lying down. Sepsis Assessment - Evaluation Sepsis screening result: No Definite Risk IRU A/P (1) L1 vertebral fracture Qualifiers: Encounter type: subsequent encounter Fracture morphology: burst- stable Fracture healing: with routine healing Current visit: Yes Status: Acute Continues to wear the brace when he is up and about. He is progressing with regard to dressing. Requires frequent rest breaks related to his cardiomyopathy. Does have discomfort in his back if he sits for prolonged times. (2) Fracture of T12 vertebra Qualifiers: Encounter type: subsequent encounter Fracture type: closed Fracture morphology: burst- stable Current visit: Yes Status: Acute (3) Cardiomyopathy, ischemic Current visit: Yes Status: Chronic Continues to be symptomatic with regard to his cardiomyopathy. Denies chest pains at present however. 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 Blood pressure is stable at 125 or so. (6) Mitral regurgitation Qualifiers: Cardiac valve disease etiology: nonrheumatic Qualified Code(s): I34.0 - Nonrheumatic mitral (valve) insufficiency Current visit: Yes Status: Chronic (7) Orthostatic hypotension Current visit: Yes Status: Acute (8) Anemia Qualifiers: Anemia type: other cause Other causes of anemia: acute posthemorrhagic Qualified Code(s): D62 - Acute posthemorrhagic anemia Current visit: Yes Status: Acute His hemoglobin has been stable. He has at least acute blood loss edema due to the ecchymosis in his leg. We will reassess his blood work tomorrow. (9) Atrial fibrillation Qualifiers: Atrial fibrillation type: chronic Qualified Code(s): I48.2 - Chronic atrial fibrillation Current visit: Yes Status: Chronic Patient is on Eliquis. (10) Slow transit constipation Current visit: Yes Status: Acute (11) Delirium due to another medical condition Current visit: Yes Status: Acute Does have some confusion at times. Likely this is related to his pain medication. DVT Prophylaxis: SCD's, Eliquis - Course Hospital Course: Kendell Vargas MD: 02/16/17 11:06 Continues to work with therapy. Back pain is controlled but he is on regular doses of Percocet every 4 hours. Constipation is an issue. Congestive cardiomyopathy noted with ejection fraction 10-15 percent. Need to limit exertion in this regard. Remains on SARIAH inhibitor. We will add Colace on a regular basis. Today I decreased his Eliquis to 2.5 mg twice daily based on his previous dosage. 02/17/17 10:02 Some decline with regard to his cognition today. Likely this is a "delirium" related to hypotension plus pain medication. Reduce Percocet 4 times daily. Continue to work with therapy. 02/18/17 11:14 Still has episodes of confusion. Stop Percocet and start tramadol today. Continued work with him. Does have lightheadedness and hypotension which impedes therapy progress. 02/22/17 10:34 Continues to complain of not thinking right or being a bit confused. However today he is oriented to place person and date including the month, day and year. Does have dyspnea with activity. Pain noted in the back with prolonged sitting. He is progressing with therapy. - Interventions to Obtain Goals PT Treatment Plan: Balance/Proprioception, Functional Activities, Gait Training , Patient/Family Education, Therapeutic Exercise OT Treatment Plan: ADL (Basic Care), Balance Training, IADL, Pt./Family Education, Ther. Exercise for ADL
[2017-02-22] MEDS: ACETAMINOPHEN 325 MG TABLET PO PRN (12:47)
[2017-02-22] MEDS: ROSUVASTATIN 20 MG TABLET PO SCH (21:25)
[2017-02-22] MEDS: LIDOCAINE 5% PATCH TOP SCH (21:27)
[2017-02-22] MEDS: LISINOPRIL 2.5 MG TABLET PO SCH (21:27)
[2017-02-22] MEDS: MELATONIN 1 MG TABLET PO SCH (21:28)
[2017-02-23] MEDS: PANTOPRAZOLE 40 MG TABLET PO SCH (05:58)
[2017-02-23] MEDS: LIDOCAINE PATCH REMOVAL TOP SCH (08:29)
[2017-02-23] MEDS: AMIODARONE 200 MG TABLET PO SCH (08:36)
[2017-02-23] MEDS: CARVEDILOL 6.25 MG TABLET PO SCH ×2 (08:36→17:59)
[2017-02-23] MEDS: FUROSEMIDE 20 MG TABLET PO SCH (08:36)
[2017-02-23] MEDS: FERROUS SULFATE 324 MG TABLET PO SCH (08:36)
[2017-02-23] MEDS: APIXABAN 5 MG TABLET PO SCH ×2 (08:36→21:07)
[2017-02-23] MEDS: POLYETHYL GLYCOL 3350 17gm PACKET PO SCH ×2 (08:37→21:06)
[2017-02-23] MEDS: DOCUSATE SODIUM 100 MG CAPSULE PO SCH ×2 (08:37→21:07)
[2017-02-23] MEDS: TRAMADOL 50 MG TABLET PO SCH ×4 (08:39→22:39)
--- NOTE | 2017-02-23 10:22 | IRU Progress Note ---
- Subjective/Serverity of Illness Mr. Cervantes states that he continues to struggle with pain in the back although it is somewhat improved. He is able to ambulate with assistance. Requires maximal assistance for toileting and dressing. His progress is somewhat slow. He is concerned about going home because he does not think his will be able to care for him due to her health issues. He specifically denies any chest pain. He denies shortness of breath. However his exercise tolerance is notably poor due to his congestive cardiomyopathy with ejection fraction around 10-15%. His blood pressures have remained fairly reasonable above 100 for the most part. Exam Vital Signs: Temperature 97.7 F 02/23/17 08:00 Pulse Rate 60 02/23/17 08:00 Respiratory Rate 20 02/23/17 08:00 Blood Pressure 131/70 02/23/17 08:00 Pulse Oximetry 97 02/23/17 08:00 Oxygen Delivery Method Room Air Height: 1.79 m Weight: 71.7 kg Body Mass Index: 23.7 - Constitutional Present: no acute distress Comments: The patient is awake, alert and oriented and in no acute distress. Pupils are equal. The neck is supple. Chest: Clear to auscultation bilaterally. Cor: irregular rhythm with systolic murmurs as before. Abd: soft with normo-active bowel sounds. There are no masses, no tenderness and no guarding. Extremities: No edema is noted. No cyanosis is present. Sepsis Assessment - Evaluation Sepsis screening result: No Definite Risk IRU A/P (1) L1 vertebral fracture Qualifiers: Encounter type: subsequent encounter Fracture morphology: burst- stable Fracture healing: with routine healing Current visit: Yes Status: Acute Pain continues to be an issue as well as the need to wear the brace. He is wearing the brace all the time that he is up and about and if he is greater than 20 elevation in bed. (2) Fracture of T12 vertebra Qualifiers: Encounter type: subsequent encounter Fracture type: closed Fracture morphology: burst- stable Current visit: Yes Status: Acute (3) Cardiomyopathy, ischemic Current visit: Yes Status: Chronic His ischemic cardiomyopathy is a barrier to his progress and limitation on his activity. However he actually denies shortness of breath. However his exercise tolerance is obviously reduced. Because of his multiple medications, we will check a BMP tomorrow. (4) ASHD (arteriosclerotic heart disease) Current visit: Yes Status: Chronic He specifically denies any chest pain. He was complaining of that previously although it was not clear that this represented angina. (5) Aortic valve disorder Current visit: Yes Status: Chronic (6) Mitral regurgitation Qualifiers: Cardiac valve disease etiology: nonrheumatic Qualified Code(s): I34.0 - Nonrheumatic mitral (valve) insufficiency Current visit: Yes Status: Chronic (7) Orthostatic hypotension Current visit: Yes Status: Acute Blood pressures have remained relatively stable. (8) Anemia Qualifiers: Anemia type: other cause Other causes of anemia: acute posthemorrhagic Qualified Code(s): D62 - Acute posthemorrhagic anemia Current visit: Yes Status: Acute The last hemoglobin was on February 16. We will repeat that tomorrow with a CBC with differential. He has had no overt signs of bleeding. He is tolerating Eliquis well. (9) Atrial fibrillation Qualifiers: Atrial fibrillation type: chronic Qualified Code(s): I48.2 - Chronic atrial fibrillation Current visit: Yes Status: Chronic Patient remains on Eliquis without signs of bleeding. (10) Slow transit constipation Current visit: Yes Status: Acute (11) Delirium due to another medical condition Current visit: Yes Status: Acute DVT Prophylaxis: SCD's, Eliquis - Course Hospital Course: Kendell Vragas MD: 02/16/17 11:06 Continues to work with therapy. Back pain is controlled but he is on regular doses of Percocet every 4 hours. Constipation is an issue. Congestive cardiomyopathy noted with ejection fraction 10-15 percent. Need to limit exertion in this regard. Remains on SARIAH inhibitor. We will add Colace on a regular basis. Today I decreased his Eliquis to 2.5 mg twice daily based on his previous dosage. 02/17/17 10:02 Some decline with regard to his cognition today. Likely this is a "delirium" related to hypotension plus pain medication. Reduce Percocet 4 times daily. Continue to work with therapy. 02/18/17 11:14 Still has episodes of confusion. Stop Percocet and start tramadol today. Continued work with him. Does have lightheadedness and hypotension which impedes therapy progress. 02/22/17 10:34 Continues to complain of not thinking right or being a bit confused. However today he is oriented to place person and date including the month, day and year. Does have dyspnea with activity. Pain noted in the back with prolonged sitting. He is progressing with therapy. 02/23/17 10:24 Pain continues to be a barrier to progress along with his lightheadedness and poor exercise tolerance related to his ischemic cardiomyopathy. He is progressing with therapy but still requires quite a bit of assistance with dressing and toileting. Unable to put on his brace by himself at present. Disposition may be an issue. We are asking family to be there at noon for the team conference. - Interventions to Obtain Goals PT Treatment Plan: Balance/Proprioception, Functional Activities, Gait Training , Patient/Family Education, Therapeutic Exercise OT Treatment Plan: ADL (Basic Care), Balance Training, IADL, Pt./Family Education, Ther. Exercise for ADL
[2017-02-23] MEDS: ACETAMINOPHEN 325 MG TABLET PO PRN (15:30)
--- NOTE | 2017-02-23 15:44 | IRU Team Meeting ---
IRU Team Meeting - Nursing Vital Signs: Vital Signs - 24 hr 02/22/17 16:00 02/22/17 19:48 02/23/17 08:00 Temperature 96.2 F L 97.8 F 97.7 F Pulse Rate 61 61 60 Respiratory Rate 20 16 20 Blood Pressure 113/61 97/56 131/70 Pulse Oximetry 94 95 97 02/23/17 12:38 Temperature Pulse Rate 59 L Respiratory Rate 18 Blood Pressure 97/58 Pulse Oximetry 95 Current Medications: Acetaminophen (Tylenol) 325 - 650 mg PO Q6H PRN PRN Reason: Pain Last Admin: 02/23/17 15:30 Dose: 650 mg Amiodarone HCl (Pacerone) 200 mg PO DAILY [facility] Last Admin: 02/23/17 08:36 Dose: 200 mg Apixaban (Eliquis) 2.5 mg PO BID [facility] Last Admin: 02/23/17 08:36 Dose: 2.5 mg Carvedilol (Coreg) 6.25 mg PO BIDWM [facility] Last Admin: 02/23/17 08:36 Dose: 6.25 mg Docusate Sodium (Colace) 100 mg PO BID [facility] Last Admin: 02/23/17 08:37 Dose: 100 mg Ferrous Sulfate (Feosol) 324 mg PO WB [facility] Last Admin: 02/23/17 08:36 Dose: 324 mg Furosemide (Lasix) 10 mg PO DAILY [facility] Last Admin: 02/23/17 08:36 Dose: 10 mg Lisinopril (Prinivil) 2.5 mg PO 2100 [facility] Last Admin: 02/22/17 21:27 Dose: Not Given Melatonin (Melatonin) 3 mg PO HS [facility] Last Admin: 02/22/17 21:28 Dose: 3 mg Pantoprazole Sodium (Protonix Tab) 40 mg PO ACB [facility] Last Admin: 02/23/17 05:58 Dose: 40 mg Polyethylene Glycol (Miralax) 17 gm PO BID [facility] Last Admin: 02/23/17 08:37 Dose: Not Given Rosuvastatin Calcium (Crestor) 40 mg PO 2100 [facility] Last Admin: 02/22/17 21:25 Dose: 40 mg Tramadol HCl (Ultram) 50 mg PO QID [facility] Last Admin: 02/23/17 13:02 Dose: 50 mg Comments: Mr. Cervantes and his family (, daughter, son-in-law) were present for the entire team meeting regarding him. We met in the patient's room. He continues to struggle with lightheadedness. Continues to have episodes of orthostatic hypotension. His physician Dr. Vargas was contacted and will involve Dr. Bravo with her conditions in this regard. Patient and family have several questions about his safety with going home. He denies any chest pain or shortness of breath. His appetite is reasonably good. Has had some anemia but still is Hemoccult negative. Likely source is contusion/ ecchymosis in the left leg. Hemoglobin is stable. - Physical Therapy Comments: Patient has several questions about how far he can twist etc. This is reviewed with him. He is seeing physical therapy. There are some safety and cueing issues. He is walking with a walker and doing well. He is liming 6 steps of stairs at a time. He does need verbal cues for this. He is walking 512 feet independently with a front-wheeled walker. Safety concerns persist and strengthening will continue. - Occupational Therapy Lower Body Dressing Comment: Patient still requires assistance with putting the brace on and removing it. He also requires assistance for dressing. Family education will be involved. - Care Plan Anticipated Length of Stay: 7 Anticipated DC Destination: Home, Self Care Interventions/Goals: Barriers to discharge: 1. Lightheadedness 2. Cognitive issues with patient requiring frequent verbal cues, 3. Endurance 4. Confidence Goals: 1. Family education 2. Safety with transfers 3. Transfer without twisting (consistently maintain proper body alignment) I certify that I personally led the interdisciplinary team meeting and agree with comments, barriers and goals indicated.
--- NOTE | 2017-02-23 18:03 | Echocardiogram ---
DATE OF PROCEDURE February 23, 2017 This is a two-dimensional echo with spectral Doppler, color-flow and M-mode. It was obtained in a patient with hypertension and cardiomyopathy. Left atrium is dilated. Left ventricle end-diastolic dimension is increased. Left ventricle wall thickness is increased. LV systolic function is reduced with global hypokinesia with ejection fraction of about 20%. Right atrium is dilated. Right ventricle is normal. Aortic root dimension is normal. Mitral valve annulus is calcified. Mitral valve leaflets are normal with moderate mitral regurgitation. Aortic valve appears to be a bioprosthetic valve which is well seated and functions well. Peak velocity across the aortic valve is 2.3 m/sec with a valve area of 1.25 cm2. Tricuspid valve shows mild tricuspid regurgitation with mild pulmonary hypertension with estimated pulmonary artery systolic pressure of 39. Pulmonary valve shows mild pulmonary insufficiency. There is no pericardial effusion. Pacemaker is seen in the right heart. IMPRESSION 1. Global hypokinesia with ejection fraction of 20%. 2. Biatrial dilation. 3. Left ventricular dilation. 4. Left ventricular hypertrophy. 5. Mitral annulus calcification with moderate mitral regurgitation. 6. 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 Mild tricuspid regurgitation with mild pulmonary hypertension with estimated pulmonary artery systolic pressure of 39. 8. Mild pulmonary insufficiency. 9. Permanent pacemaker is present. [facility]
[2017-02-23] MEDS: MELATONIN 1 MG TABLET PO SCH ×3 (21:06→22:41)
[2017-02-23] MEDS: ROSUVASTATIN 20 MG TABLET PO SCH (21:06)
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
[2017-02-24] MEDS: ACETAMINOPHEN 325 MG TABLET PO PRN (02:58)
[2017-02-24] MEDS: PANTOPRAZOLE 40 MG TABLET PO SCH (05:45)
[2017-02-24] MEDS: TRAMADOL 50 MG TABLET PO SCH ×5 (07:26→20:57)
[2017-02-24] MEDS: FERROUS SULFATE 324 MG TABLET PO SCH (09:25)
[2017-02-24] MEDS: DOCUSATE SODIUM 100 MG CAPSULE PO SCH ×2 (09:26→20:57)
[2017-02-24] MEDS: APIXABAN 5 MG TABLET PO SCH ×2 (09:26→20:58)
[2017-02-24] MEDS: AMIODARONE 200 MG TABLET PO SCH (09:27)
[2017-02-24] MEDS: FUROSEMIDE 20 MG TABLET PO SCH (09:27)
[2017-02-24] MEDS: POLYETHYL GLYCOL 3350 17gm PACKET PO SCH ×2 (09:28→21:02)
--- NOTE | 2017-02-24 10:42 | IRU Progress Note ---
- Subjective/Serverity of Illness Mr. Cervantes seems more upbeat and encouraged today. Back pain continues to be at a 5 out of 10 in intensity. This is worse if he sits for a prolonged time. He denies any lightheadedness. He was seen by Dr. Alfredo yesterday. Dr. Alfredo stop the lisinopril and Coreg and continued Lasix. Blood pressures have been over 100 in general. Repeat hemoglobin was checked at 10 g percent. He had a good bowel movement yesterday or this morning. His appetite remains good. Most recent echocardiogram demonstrated ejection fraction around 20%. He continues to have reduced exercise tolerance in this regard. Based on family discussion yesterday, his will come in and therapy will work with her with regard to donning and doffing the brace for her . Exam Vital Signs: Temperature 97.9 F 02/24/17 08:00 Pulse Rate 60 02/24/17 08:00 Respiratory Rate 18 02/24/17 08:00 Blood Pressure 100/60 02/24/17 08:00 Pulse Oximetry 99 02/24/17 08:00 Oxygen Delivery Method Room Air Height/Weight/BMI: Height 1.79 m Weight 71.7 kg Body Mass Index 23.7 - Constitutional Present: no acute distress Comments: The patient is awake, alert and oriented and in no acute distress. He is more upbeat and positive today. Pupils are equal. The neck is supple. Chest: Clear to auscultation bilaterally. Cor: irregular rhythm with no gallop nor click. He does continue to demonstrate the systolic murmurs as before consistent with his known aortic valve prosthesis (bovine). Abd: soft with normo-active bowel sounds. There are no masses, no tenderness and no guarding. Extremities: No edema is noted. There are good pulses in both ankles. No cyanosis is present. Results IRU - Labs Labs: Reviewed his repeat hemoglobin which is around [address] Alfredo' s evaluation as well. Sepsis Assessment - Evaluation Sepsis screening result: No Definite Risk IRU A/P (1) L1 vertebral fracture Qualifiers: Encounter type: subsequent encounter Fracture morphology: burst- stable Fracture healing: with routine healing Current visit: Yes Status: Chronic Pain is rated at a 5 out of 10. It is tolerable. He is wearing the brace when up and about. Continues to cooperate with therapy and is improving. Family training also is initiated. (2) Fracture of T12 vertebra Qualifiers: Encounter type: subsequent encounter Fracture type: closed Fracture morphology: burst- stable Current visit: Yes Status: Chronic (3) Cardiomyopathy, ischemic Current visit: Yes Status: Chronic Cardiology has reduced his medications by stopping the carvedilol and lisinopril because of his orthostatic hypotension. Patient feels better at this point. (4) ASHD (arteriosclerotic heart disease) Current visit: Yes Status: Chronic (5) Aortic valve disorder Current visit: Yes Status: Chronic (6) Mitral regurgitation Qualifiers: Cardiac valve disease etiology: nonrheumatic Qualified Code(s): I34.0 - Nonrheumatic mitral (valve) insufficiency Current visit: Yes Status: Chronic (7) Orthostatic hypotension Current visit: Yes Status: Acute Blood pressures are more stable at the present time. (8) Anemia Qualifiers: Anemia type: other cause Other causes of anemia: acute posthemorrhagic Qualified Code(s): D62 - Acute posthemorrhagic anemia Current visit: Yes Status: Chronic Most likely etiology of his anemia was bleeding into the soft tissue after his fall (left posterior thigh). Hemoglobin is gradually increasing. Iron studies were unremarkable. (9) Atrial fibrillation Qualifiers: Atrial fibrillation type: chronic Qualified Code(s): I48.2 - Chronic atrial fibrillation Current visit: Yes Status: Chronic (10) Slow transit constipation Current visit: Yes Status: Acute (11) Delirium due to another medical condition Current visit: Yes Status: Acute DVT Prophylaxis: SCD's, Eliquis - Course Hospital Course: Kendell Vargas MD: 02/16/17 11:06 Continues to work with therapy. Back pain is controlled but he is on regular doses of Percocet every 4 hours. Constipation is an issue. Congestive cardiomyopathy noted with ejection fraction 10-15 percent. Need to limit exertion in this regard. Remains on SARIAH inhibitor. We will add Colace on a regular basis. Today I decreased his Eliquis to 2.5 mg twice daily based on his previous dosage. 02/17/17 10:02 Some decline with regard to his cognition today. Likely this is a "delirium" related to hypotension plus pain medication. Reduce Percocet 4 times daily. Continue to work with therapy. 02/18/17 11:14 Still has episodes of confusion. Stop Percocet and start tramadol today. Continued work with him. Does have lightheadedness and hypotension which impedes therapy progress. 02/22/17 10:34 Continues to complain of not thinking right or being a bit confused. However today he is oriented to place person and date including the month, day and year. Does have dyspnea with activity. Pain noted in the back with prolonged sitting. He is progressing with therapy. 02/23/17 10:24 Pain continues to be a barrier to progress along with his lightheadedness and poor exercise tolerance related to his ischemic cardiomyopathy. He is progressing with therapy but still requires quite a bit of assistance with dressing and toileting. Unable to put on his brace by himself at present. Disposition may be an issue. We are asking family to be there at noon for the team conference. 02/24/17 10:[address] Alfredo and his carvedilol and lisinopril were discontinued. Blood pressures will continue to be monitored. Family training regarding the brace will be undertaken. He continues to cooperate with therapy. His repeat hemoglobin is improved. - Interventions to Obtain Goals PT Treatment Plan: Balance/Proprioception, Functional Activities, Gait Training , Patient/Family Education, Therapeutic Exercise OT Treatment Plan: ADL (Basic Care), Balance Training, IADL, Pt./Family Education, Ther. Exercise for ADL Goals Progress/Modifications: We will monitor him off the carvedilol and lisinopril and monitor his cardiac status carefully. He will continue to work with therapy. Blood pressures will be monitored as well. Hemoglobin is improved. His attitude is improved. However he is still anxious about not wanting to injure his back and avoiding twisting. He was commended for this and we discussed the importance of logroll technique.
--- NOTE | 2017-02-24 13:41 | Cardiology Progress Note ---
Subjective Principal diagnosis: hypotension <Yady Womack - 02/24/17 13:46> Interval history: Stanley is seen in his room on IRU with family at the bedside. Discussed medication changes and patient's EF with the patient and his . He denies chest pain, dyspnea, dizziness or lightheadedness <Yady Womack - 02/24/17 13:46> Exam Vital signs: Temperature 97.8 F 02/24/17 19:41 Pulse Rate 59 L 02/25/17 08:00 Respiratory Rate 16 02/25/17 08:00 Blood Pressure 92/55 02/25/17 08:00 Pulse Oximetry 97 02/24/17 19:41 Oxygen Delivery Method Room Air <Lance Alfredo - 02/25/17 12:47> Temperature 97.9 F 02/24/17 08:00 Pulse Rate 60 02/24/17 08:00 Respiratory Rate 18 02/24/17 08:00 Blood Pressure 100/60 02/24/17 08:00 Pulse Oximetry 99 02/24/17 08:00 Oxygen Delivery Method Room Air <Yady Womack - 02/24/17 13:46> - Constitutional no acute distress, thin, cooperative <Yady Womack 02/24/17 13:46> - Routine HEENT Exam Head: Present: normocephalic <Yady Womack 02/24/17 13:46> ENT: Present: mucous membranes moist <Yady Womack 02/24/17 13:46> - Routine Neck Exam Absent: JVD, carotid bruit <Yady Womack 02/24/17 13:46> - Routine Chest/Breast/Axilla Exam Chest wall: Absent: tenderness <Yady Womack 02/24/17 13:46> - Routine Respiratory Exam Present: CTA bilaterally. Absent: rales, wheezes <Yady Womack 02/24/17 13:46> - Routine Cardiovascular Exam Present: RRR, murmur (III/). Absent: JVD <Yady Womack 02/24/17 13:46> - Routine Abdominal Exam Present: soft, normoactive bowel sounds <Yady Womack 02/24/17 13:46> - Routine Extremities Exam Present: no edema <Yady Womack - 02/24/17 13:46> - Routine Skin Exam Present: intact, dry, warm <Yady Womack - 02/24/17 13:46> - Routine Neurological Exam Present: alert, oriented X3 <Yady Womack - 02/24/17 13:46> - Routine Psychiatric Exam Present: normal affect, normal thought process <Yady Womack - 02/24/17 13: 46> - Additional findings Additional findings: Laboratory Results - last 72 hr 02/24/17 02/24/17 04:43 04:43 WBC 5.2 RBC 3.58 L Hgb 10.9 L Hct 34.2 L MCV 95.5 MCH 30.4 MCHC 31.9 RDW Std Deviation 49.5 Plt Count 281 MPV 8.9 L Immature Gran % (Auto) 0.8 H Neut % (Auto) 62.3 Lymph % (Auto) 21.2 L Lynn % (Auto) 11.8 H Eos % (Auto) 3.3 Baso % (Auto) 0.6 Neut # 3.2 Lymph # 1.1 Lynn # 0.6 Eos # 0.2 Baso # 0.0 Abs Immat Gran (auto) 0.04 H Turbidity < 20 Sodium 142 Potassium 4.7 Chloride 104 Carbon Dioxide 28 Anion Gap 10 BUN 27.0 H Creatinine 0.8 GFR Calculation 93 BUN/Creatinine Ratio 34 H Glucose 87 Calculated Osmolality 277 Calcium 9.3 Magnesium 2.3 Icterus Index < 2 TSH Acetaminophen (Tylenol) 325 - 650 mg PO Q6H PRN PRN Reason: Pain Last Admin: 02/24/17 02:58 Dose: 650 mg Amiodarone HCl (Pacerone) 200 mg PO DAILY [facility] Last Admin: 02/24/17 09:27 Dose: 200 mg Apixaban (Eliquis) 2.5 mg PO BID [facility] Last Admin: 02/24/17 09:26 Dose: 2.5 mg Docusate Sodium (Colace) 100 mg PO BID [facility] Last Admin: 02/24/17 09:26 Dose: 100 mg Ferrous Sulfate (Feosol) 324 mg PO WB [facility] Last Admin: 02/24/17 09:25 Dose: 324 mg Furosemide (Lasix) 10 mg PO DAILY [facility] Last Admin: 02/24/17 09:27 Dose: 10 mg Melatonin (Melatonin) 3 mg PO HS [facility] Last Admin: 02/23/17 22:41 Dose: Not Given Pantoprazole Sodium (Protonix Tab) 40 mg PO ACB [facility] Last Admin: 02/24/17 05:45 Dose: 40 mg Polyethylene Glycol (Miralax) 17 gm PO BID [facility] Last Admin: 02/24/17 09:28 Dose: 17 gm Rosuvastatin Calcium (Crestor) 40 mg PO 2100 [facility] Last Admin: 02/23/17 21:06 Dose: 40 mg Tramadol HCl (Ultram) 50 mg PO QID [facility] Last Admin: 02/24/17 12:35 Dose: 50 mg 6.37 H Specimen Hemolysis < 15 <Yady Womack - 02/24/17 13:46> Progress Note-A&P (1) L1 vertebral fracture Status: Chronic Current Visit: Yes (2) Fracture of T12 vertebra Status: Chronic Current Visit: Yes (3) Cardiomyopathy, ischemic Problem details: EF20% 02/23/17 Status: Chronic Current Visit: Yes (4) ASHD (arteriosclerotic heart disease) Status: Chronic Current Visit: Yes (5) Aortic valve disorder Status: Chronic Current Visit: Yes (6) Mitral regurgitation Status: Chronic Current Visit: Yes (7) Orthostatic hypotension Status: Acute Current Visit: Yes (8) Anemia Status: Chronic Current Visit: Yes (9) Paroxysmal atrial fibrillation Status: Chronic Current Visit: Yes <Lance Alfredo - 02/25/17 12:47> (1) L1 vertebral fracture Status: Chronic Current Visit: Yes (2) Fracture of T12 vertebra Status: Chronic Current Visit: Yes (3) Cardiomyopathy, ischemic Problem details: EF20% 02/23/17 Status: Chronic Assessment and plan: Unable to tolerate Coreg. Will start Entresto and continue to monitor Current Visit: Yes (4) ASHD (arteriosclerotic heart disease) Status: Chronic Current Visit: Yes (5) Aortic valve disorder Status: Chronic Current Visit: Yes (6) Mitral regurgitation Status: Chronic Current Visit: Yes (7) Orthostatic hypotension Status: Acute Current Visit: Yes (8) Anemia Status: Chronic Current Visit: Yes (9) Paroxysmal atrial fibrillation Status: Chronic Current Visit: Yes <Yady Womack - 02/24/17 13:46> - Time Spent With Patient Total time spent is greater than 50% in coordination of care (as documented) at patient's floor/unit and/or counseling patient: <Lance Alfredo - 02/25/17 12:47> Total time spent is greater than 50% in coordination of care (as documented) at patient's floor/unit and/or counseling patient: <Yady Womack - 02/24/17 13:46> less than 15 minutes <Yady Womack 02/24/17 13:46> - Attestation Attestation Narrative: Recommendation After examining the patient I agree with the above assessment. I am involved in the formulation of the patient's plan of care. <Shawn Alfredosein - 02/25/17 12:47> Sepsis Assessment - Evaluation Sepsis screening result: No Definite Risk <Yady Womack 02/24/17 13:46> Hospital Course Summary Disclaimer: The visit summary below is not to be considered part of the above Progress Note. <Shawn Alfredosein 02/25/17 12:47> The visit summary below is not to be considered part of the above Progress Note. <Yady Womack 02/24/17 13:46> Hospital Course: Cardiomyopathy, ischemic: 02/23/2017 echo: EF 20%, BAD, LVH, mod MR, AVR well seated, mild PHTN. He looks euvolemic. No orthopnea, no SOB, no edema. - Wt on 02/14 167 # and on 02/22 158# He has lost 9 # since admit. I/O not accurate. - cont lasix 10mg po daily. 02/16 K+ ok - BMP and Mag ordered for tomorrow. - Stop Coreg and lisinopril due to hypotension and lightheadedness. - discussed with pt the benefits outwt the risks for stopping BB and SARIAH now. - Monitor Wts, lytes and renal function. Orthostatic hypotension Wt down 9 pounds in 9 days. BP 90's to 100's usually in sitting position. Up to 131 in supine position. He is symptomatic with lightheadedness upon standing. - stop Coreg and lisinopril - they are being held the majority ofthe time due to low BP and HR. check orthostatics. with his cardiomyopathy, we wouldn't expect his BP to be high. Aortic valve disorder 02/23/2017 echo: AVR - tissue is well seated. ASHD (arteriosclerotic heart disease) s/p CABG in 2000 and 2014. No ASA since he is on Eliquis. Cont Crestor. Denies chest pain at this time. Mitral regurgitation 02/23/2017 echo: moderate MR. Anemia CBC ordered for am. On iron. Although he has a bruise on his back and side, not likely bleeding. No signs of bleeding. Fracture of T12 vertebra L1 vertebral fracture Paroxysmal atrial fibrillation HR sounds regular. Cont amiodarone for antiarrhythmic. Cont Eliquis for anticoagulant. Order ECG to confirm. Check BMP, Mag and TSH in am. 02/24/17 13:43 Start Entresto 24/26mg po BID and continue to monitor <Yady Womack - 02/24/17 13:46>
[2017-02-24] MEDS: SACUBITRIL/VALSARTAN 24/26mg TABLET PO SCH ×2 (14:32→20:57)
[2017-02-24] MEDS: MELATONIN 1 MG TABLET PO SCH (20:57)
[2017-02-24] MEDS: ROSUVASTATIN 20 MG TABLET PO SCH (20:58)
[2017-02-25] MEDS: PANTOPRAZOLE 40 MG TABLET PO SCH (05:30)
[2017-02-25] MEDS: DOCUSATE SODIUM 100 MG CAPSULE PO SCH ×2 (09:32→21:00)
[2017-02-25] MEDS: AMIODARONE 200 MG TABLET PO SCH (09:32)
[2017-02-25] MEDS: FERROUS SULFATE 324 MG TABLET PO SCH (09:32)
[2017-02-25] MEDS: FUROSEMIDE 20 MG TABLET PO SCH (09:32)
[2017-02-25] MEDS: TRAMADOL 50 MG TABLET PO SCH ×3 (09:32→18:40)
[2017-02-25] MEDS: APIXABAN 5 MG TABLET PO SCH ×2 (09:33→21:01)
[2017-02-25] MEDS: SACUBITRIL/VALSARTAN 24/26mg TABLET PO SCH ×2 (09:33→21:02)
[2017-02-25] MEDS: POLYETHYL GLYCOL 3350 17gm PACKET PO SCH ×2 (09:47→21:03)
--- NOTE | 2017-02-25 14:48 | Cardiology Progress Note ---
Subjective Principal diagnosis: hypotension <Yady Womack - 02/25/17 14:48> Interval history: Stanley is seen in his room on IRU, he is sitting on the bedside with family present. He denies chest pain, dyspnea, dizziness or lightheadedness <Yady Womack - 02/25/17 14:48> Exam Vital signs: Temperature 97.8 F 02/24/17 19:41 Pulse Rate 59 L 02/25/17 08:00 Respiratory Rate 02/25/17 08:00 Blood Pressure 92/55 02/25/17 08:00 Pulse Oximetry 97 02/24/17 19:41 Oxygen Delivery Method Room Air <Lance Alfredo - 02/25/17 14:56> Temperature 97.8 F 02/24/17 19:41 Pulse Rate 59 L 02/25/17 08:00 Respiratory Rate 02/25/17 08:00 Blood Pressure 92/55 02/25/17 08:00 Pulse Oximetry 97 02/24/17 19:41 Oxygen Delivery Method Room Air <Yady Womack 02/25/17 14:48> - Constitutional no acute distress, well nourished, cooperative <Yady Womack 02/25/17 14: 48> - Routine HEENT Exam Head: Present: normocephalic <Yady Womack 02/25/17 14:48> ENT: Present: mucous membranes moist <Yady Womack 02/25/17 14:48> - Routine Neck Exam Absent: JVD, carotid bruit <Yady Womack 02/25/17 14:48> - Routine Chest/Breast/Axilla Exam Chest wall: Absent: tenderness <Yady Womack 02/25/17 14:48> - Routine Respiratory Exam Present: CTA bilaterally. Absent: rales, wheezes <Yady Womack 02/25/17 14:48> - Routine Cardiovascular Exam Present: RRR, murmur (III/) <Yady Womack 02/25/17 14:48> - Routine Abdominal Exam Present: soft, normoactive bowel sounds <ShantaYady Cardenas 02/25/17 14:48> - Routine Extremities Exam Present: no edema <Yady Womack 02/25/17 14:48> - Routine Skin Exam Present: intact, dry, warm <Yady Womack 02/25/17 14:48> - Routine Neurological Exam Present: alert, oriented X3 <Yady Womack 02/25/17 14:48> - Routine Psychiatric Exam Present: normal affect, normal thought process <Yady Womack 02/25/17 14: 48> Progress Note-A&P (1) L1 vertebral fracture Status: Chronic Current Visit: Yes (2) Fracture of T12 vertebra Status: Chronic Current Visit: Yes (3) Cardiomyopathy, ischemic Problem details: EF20% 02/23/17 Status: Chronic Current Visit: Yes (4) ASHD (arteriosclerotic heart disease) Status: Chronic Current Visit: Yes (5) Aortic valve disorder Status: Chronic Current Visit: Yes (6) Mitral regurgitation Status: Chronic Current Visit: Yes (7) Orthostatic hypotension Status: Acute Current Visit: Yes (8) Anemia Status: Chronic Current Visit: Yes (9) Paroxysmal atrial fibrillation Status: Chronic Current Visit: Yes <SaydaLance 02/25/17 14:56> (1) L1 vertebral fracture Status: Chronic Current Visit: Yes (2) Fracture of T12 vertebra Status: Chronic Current Visit: Yes (3) Cardiomyopathy, ischemic Problem details: EF20% 02/23/17 Status: Chronic Assessment and plan: Unable to tolerate Coreg. Will start Entresto and continue to monitor Current Visit: Yes (4) ASHD (arteriosclerotic heart disease) Status: Chronic Current Visit: Yes (5) Aortic valve disorder Status: Chronic Current Visit: Yes (6) Mitral regurgitation Status: Chronic Current Visit: Yes (7) Orthostatic hypotension Status: Acute Current Visit: Yes (8) Anemia Status: Chronic Current Visit: Yes (9) Paroxysmal atrial fibrillation Status: Chronic Current Visit: Yes <Yady Womack 02/25/17 14:45> - Time Spent With Patient Total time spent is greater than 50% in coordination of care (as documented) at patient's floor/unit and/or counseling patient: <SaydaLance - 02/25/17 14:56> Total time spent is greater than 50% in coordination of care (as documented) at patient's floor/unit and/or counseling patient: <Yady Womack - 02/25/17 14:48> less than 15 minutes <Yady Womack - 02/25/17 14:48> - Attestation Attestation Narrative: Recommendation After examining the patient I agree with the above assessment. I am involved in the formulation of the patient's plan of care. <Lance Alfredo - 02/25/17 14:56> Sepsis Assessment - Evaluation Sepsis screening result: No Definite Risk <Yady Womack - 02/25/17 14:48> Hospital Course Summary Disclaimer: The visit summary below is not to be considered part of the above Progress Note. <Lance Alfredo - 02/25/17 14:56> The visit summary below is not to be considered part of the above Progress Note. <Yady Womack - 02/25/17 14:48> Hospital Course: Cardiomyopathy, ischemic: 02/23/2017 echo: EF 20%, BAD, LVH, mod MR, AVR well seated, mild PHTN. He looks euvolemic. No orthopnea, no SOB, no edema. - Wt on 02/14 167 # and on 02/22 158# He has lost 9 # since admit. I/O not accurate. - cont lasix 10mg po daily. 02/16 K+ ok - BMP and Mag ordered for tomorrow. - Stop Coreg and lisinopril due to hypotension and lightheadedness. - discussed with pt the benefits outwt the risks for stopping BB and SARIAH now. - Monitor Wts, lytes and renal function. Orthostatic hypotension Wt down 9 pounds in 9 days. BP 90's to 100's usually in sitting position. Up to 131 in supine position. He is symptomatic with lightheadedness upon standing. - stop Coreg and lisinopril - they are being held the majority ofthe time due to low BP and HR. check orthostatics. with his cardiomyopathy, we wouldn't expect his BP to be high. Aortic valve disorder 02/23/2017 echo: AVR - tissue is well seated. ASHD (arteriosclerotic heart disease) s/p CABG in 2000 and 2014. No ASA since he is on Eliquis. Cont Crestor. Denies chest pain at this time. Mitral regurgitation 02/23/2017 echo: moderate MR. Anemia CBC ordered for am. On iron. Although he has a bruise on his back and side, not likely bleeding. No signs of bleeding. Fracture of T12 vertebra L1 vertebral fracture Paroxysmal atrial fibrillation HR sounds regular. Cont amiodarone for antiarrhythmic. Cont Eliquis for anticoagulant. Order ECG to confirm. Check BMP, Mag and TSH in am. 02/24/17 13:43 Start Entresto 24/26mg po BID and continue to monitor 02/25/17 14:47 Tolerating Entresto so far, continue to monitor <Yady Womack - 02/25/17 14:48>
[2017-02-25] MEDS: ROSUVASTATIN 20 MG TABLET PO SCH (21:01)
[2017-02-25] MEDS: MELATONIN 1 MG TABLET PO SCH (21:03)
[2017-02-25] MEDS: ACETAMINOPHEN 325 MG TABLET PO PRN (21:08)
[2017-02-26] MEDS: TRAMADOL 50 MG TABLET PO SCH ×6 (00:26→22:00)
[2017-02-26] MEDS: PANTOPRAZOLE 40 MG TABLET PO SCH (05:51)
[2017-02-26] MEDS: POLYETHYL GLYCOL 3350 17gm PACKET PO SCH ×2 (08:54→20:47)
[2017-02-26] MEDS: FERROUS SULFATE 324 MG TABLET PO SCH (08:55)
[2017-02-26] MEDS: APIXABAN 5 MG TABLET PO SCH ×2 (08:55→20:45)
[2017-02-26] MEDS: DOCUSATE SODIUM 100 MG CAPSULE PO SCH ×2 (08:56→20:46)
[2017-02-26] MEDS: SACUBITRIL/VALSARTAN 24/26mg TABLET PO SCH ×2 (08:57→20:45)
--- NOTE | 2017-02-26 09:39 | IRU Progress Note ---
- Subjective/Serverity of Illness Mr. Cervantes was evaluated today. He is more positive and hopeful. He has been very worried about the back brace as well as worried about injuring his back further with twisting. He seems to be improving in this regard but still this is an issue. Carvedilol was discontinued recently and interested was started 2 days ago. Initially when I evaluated him he denied any lightheadedness. His blood pressure sitting was 88 by machine and was 92 manually. However when he got up to walk he suddenly felt quite lightheaded. We had to get a chair and assist him to sit down. Blood pressure after he was sitting at that time was 96 sitting and 90 systolic standing. Pulse was 61 in both situations. Denied any chest pain. He denies shortness of breath. has been present for family instruction regarding the brace. She is doing well in this regard. The patient would like to go home soon. He has been seen by Dr. Alfredo, cardiology. Carvedilol was discontinued and he is now on Entresto. Recent echo is reviewed with a 20% ejection fraction. Patient remains on Eliquis for his atrial fibrillation. His appetite is good. He states that he is having bowel movements. He is positive and upbeat. He would like to go home soon and we discussed that hopefully this can happen early next week. His hemoglobin has been monitored and is stable most recently at 10.9. Etiology was acute blood loss anemia likely due to the fall with contusion and ecchymosis into his left leg. That appears to be stable. Exam Vital Signs: Temperature 96.8 F 02/26/17 09:00 Pulse Rate 65 02/26/17 09:00 Respiratory Rate 16 02/26/17 09:00 Blood Pressure 92/48 02/26/17 09:02 Pulse Oximetry 98 02/26/17 09:00 Oxygen Delivery Method Room Air Height/Weight/BMI: Height 1.79 m Weight 71.1 kg Body Mass Index 23.7 - Constitutional Present: no acute distress Comments: The patient is awake, alert and oriented and in no acute distress. However when he got up to walk back to his room (I was present) he did become lightheaded. Please see above discussion regarding his blood pressures which were in the high 90s. Pupils are equal. The neck is supple. Chest: Clear to auscultation bilaterally. Cor: irregular rhythm with no gallop nor click. He does have the same systolic murmurs as previously noted. Abd: soft with normo-active bowel sounds. There are no masses, no tenderness and no guarding. Extremities: No edema is noted. There are good pulses in both ankles. No cyanosis is present. Has a good attitude and is positive although a bit worried. Neurologically he is intact. Has good strength bilaterally in the upper and lower extremities. Results IRU - Labs Labs: I have reviewed the occupational therapy and physical therapy notes in detail. Also reviewed cardiology consultation notes. Sepsis Assessment - Evaluation Sepsis screening result: No Definite Risk IRU A/P (1) L1 vertebral fracture Qualifiers: Encounter type: subsequent encounter Fracture morphology: burst- stable Fracture healing: with routine healing Current visit: Yes Status: Chronic He reports his back pain at a 5 out of 10 in intensity. He says it is gradually getting better. Continues to use pain pills on a regular basis 4 times daily. (2) Fracture of T12 vertebra Qualifiers: Encounter type: subsequent encounter Fracture type: closed Fracture morphology: burst- stable Current visit: Yes Status: Chronic (3) Cardiomyopathy, ischemic Problem details: EF20% 02/23/17 Current visit: Yes Status: Chronic Has ischemic cardiomyopathy with ejection fraction 20%. Unfortunately he is getting some lightheadedness and this is impairing his progress. Medication adjustments per cardiology. Was recently started on Entresto. We are monitoring his blood pressure in this regard. He denies any chest pains. His dyspnea is improved. 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 His murmur is unchanged. (6) Mitral regurgitation Qualifiers: Cardiac valve disease etiology: nonrheumatic Qualified Code(s): I34.0 - Nonrheumatic mitral (valve) insufficiency Current visit: Yes Status: Chronic (7) Orthostatic hypotension Current visit: Yes Status: Acute While his blood pressures are improved he continues to have episodes of lightheadedness no doubt related to a combination of things. Cardiology is involved. However this does impact his progress with therapy. (8) Anemia Qualifiers: Anemia type: other cause Other causes of anemia: acute posthemorrhagic Qualified Code(s): D62 - Acute posthemorrhagic anemia Current visit: Yes Status: Chronic (9) Atrial fibrillation Qualifiers: Atrial fibrillation type: chronic Qualified Code(s): I48.2 - Chronic atrial fibrillation Current visit: Yes Status: Chronic He remains on Eliquis. We are monitoring for bleeding and of noted no further evidence of any blood loss. (10) Slow transit constipation Current visit: Yes Status: Acute (11) Delirium due to another medical condition Current visit: Yes Status: Acute Has had some confusion. I believe this is clearing up a bit. Likely this is related to his fall as well as pain medication. He may have a degree of underlying dementia but overall he is managing reasonably well in this regard. DVT Prophylaxis: SCD's, Eliquis - Course Hospital Course: Kendell Vargas MD: 02/16/17 11:06 Continues to work with therapy. Back pain is controlled but he is on regular doses of Percocet every 4 hours. Constipation is an issue. Congestive cardiomyopathy noted with ejection fraction 10-15 percent. Need to limit exertion in this regard. Remains on SARIAH inhibitor. We will add Colace on a regular basis. Today I decreased his Eliquis to 2.5 mg twice daily based on his previous dosage. 02/17/17 10:02 Some decline with regard to his cognition today. Likely this is a "delirium" related to hypotension plus pain medication. Reduce Percocet 4 times daily. Continue to work with therapy. 02/18/17 11:14 Still has episodes of confusion. Stop Percocet and start tramadol today. Continued work with him. Does have lightheadedness and hypotension which impedes therapy progress. 02/22/17 10:34 Continues to complain of not thinking right or being a bit confused. However today he is oriented to place person and date including the month, day and year. Does have dyspnea with activity. Pain noted in the back with prolonged sitting. He is progressing with therapy. 02/23/17 10:24 Pain continues to be a barrier to progress along with his lightheadedness and poor exercise tolerance related to his ischemic cardiomyopathy. He is progressing with therapy but still requires quite a bit of assistance with dressing and toileting. Unable to put on his brace by himself at present. Disposition may be an issue. We are asking family to be there at noon for the team conference. 02/24/17 10:[address] Alfredo and his carvedilol and lisinopril were discontinued. Blood pressures will continue to be monitored. Family training regarding the brace will be undertaken. He continues to cooperate with therapy. His repeat hemoglobin is improved. 02/26/17 09:44 Continues to improve with therapy. Orthostatic hypotension again noted today when he was up walking. Multiple reasons exist for this including his ischemic cardiomyopathy with ejection fraction of 20% plus his medications. has been involved with training for doffing and donning the brace. Anticipate that he can go home early next week if medically stable. - Interventions to Obtain Goals PT Treatment Plan: Balance/Proprioception, Functional Activities, Gait Training , Patient/Family Education, Therapeutic Exercise OT Treatment Plan: ADL (Basic Care), Balance Training, IADL, Pt./Family Education, Ther. Exercise for ADL Goals Progress/Modifications: Because of his continued spells of lightheadedness and hypotension, we are monitoring him carefully with regard to impact on therapy. We will continue to work with cardiology in terms of medication adjustment. His hemoglobin has remained stable and he has had no further episodes of bleeding.
[2017-02-26] MEDS ORDERED: FALL RISK - PHARMACY CONSULT MC PRN (10:01)
[2017-02-26] MEDS: FUROSEMIDE 20 MG TABLET PO SCH (10:05)
[2017-02-26] MEDS: AMIODARONE 200 MG TABLET PO SCH (10:13)
[2017-02-26] MEDS: ROSUVASTATIN 20 MG TABLET PO SCH (20:45)
[2017-02-26] MEDS: MELATONIN 1 MG TABLET PO SCH (20:45)
--- NOTE | 2017-02-26 21:50 | Cardiology Progress Note ---
Subjective Principal diagnosis: hypotension <Roxanne Wellsca L - 02/26/17 21:49> Interval history: Stanley is seen in therapy room while he is exercising. He is observed riding the stationary bicycle with impressive stamina for his medical condition. He reports an episode of lightheadedness this AM when transferring to bed from chair, resolved with seated rest. His bp was 88 systolically at that time. <Roxanne Wellsca L - 02/27/17 15:40> Exam Vital signs: Temperature 96.4 F L 03/01/17 08:00 Pulse Rate 60 03/01/17 08:00 Respiratory Rate 16 03/01/17 08:00 Blood Pressure 130/77 03/01/17 08:00 Pulse Oximetry 97 03/01/17 08:00 Oxygen Delivery Method Room Air <Lance Alfredo - 03/01/17 13:35> Temperature 97.9 F 02/26/17 16:43 Pulse Rate 60 02/26/17 16:43 Respiratory Rate 20 02/26/17 16:43 Blood Pressure 98/63 02/26/17 16:43 Pulse Oximetry 60 L 02/26/17 16:43 Oxygen Delivery Method Room Air <Mitzy Wellsecca L - 02/26/17 21:49> - Constitutional no acute distress <BrittoniMitzyLydia L - 02/27/17 15:40> - Routine HEENT Exam Head: Present: normocephalic, atraumatic <BrittoniRoxanneLydia L - 02/27/17 15:40> Eye: Present: PERRL <BrittoniLydia L - 02/27/17 15:40> ENT: Present: mucous membranes moist <BrittoniLydia L - 02/27/17 15:40> - Routine Neck Exam Absent: JVD <BrittoniLydia L - 02/27/17 15:40> - Routine Respiratory Exam Present: decreased breath sounds <DiamondnliLydia L - 02/27/17 15:40> - Routine Cardiovascular Exam Present: murmur (I/IV) <BrittoniLydia L - 02/27/17 15:40> - Routine Abdominal Exam Present: soft, normoactive bowel sounds <Lydia Wells - 02/27/17 15:40> - Routine Extremities Exam Present: no edema <Lydia Wells - 02/27/17 15:40> - Routine Back/Spine/Pelvis Exam Back/Spine: Absent: full ROM <Lydia Wells - 02/27/17 15:40> - Routine Skin Exam Present: intact <Lydia Wells - 02/27/17 15:40> - Routine Neurological Exam Present: alert, oriented X3 <Lydia Wells - 02/27/17 15:40> - Routine Psychiatric Exam Present: normal affect, normal thought process <Lydia Wells - 02/27/17 15 :40> Progress Note-A&P (1) L1 vertebral fracture Status: Chronic Current Visit: Yes (2) Fracture of T12 vertebra Status: Chronic Current Visit: Yes (3) Cardiomyopathy, ischemic Problem details: EF20% 02/23/17 Status: Chronic Current Visit: Yes (4) ASHD (arteriosclerotic heart disease) Status: Chronic Current Visit: Yes (5) Aortic valve disorder Status: Chronic Current Visit: Yes (6) Mitral regurgitation Status: Chronic Current Visit: Yes (7) Orthostatic hypotension Status: Acute Current Visit: Yes (8) Anemia Status: Chronic Current Visit: Yes (9) Paroxysmal atrial fibrillation Status: Chronic Current Visit: Yes <Lance Alfredo - 03/01/17 13:35> (1) L1 vertebral fracture Status: Chronic Current Visit: Yes (2) Cardiomyopathy, ischemic Problem details: EF20% 02/23/17 Status: Chronic Assessment and plan: EF 20%. He was previously on lisinopril 2.5mg and coreg 3.125mg bid and unable to tolerate 2/2 orthostatic hypotension. He was switched to low dose entrestro, no wash out period as lisinopril had been held previously. He continues to experience orthostatic hypotension, plan to get compressive stockings and push fluids. Lasix discontinued, given diuretic effect of Entresto. Will monitor fluid volume balance and vitals. In the context of his poor LV function, recommend attempting all modifiying factors for orthostasis to remain on heart failure medical treatment. Current Visit: Yes (3) Fracture of T12 vertebra Status: Chronic Current Visit: Yes (4) ASHD (arteriosclerotic heart disease) Status: Chronic Assessment and plan: on eliquis 2/2 to AFib, continue statin therapy. Current Visit: Yes (5) Aortic valve disorder Status: Chronic Current Visit: Yes (6) Mitral regurgitation Status: Chronic Current Visit: Yes (7) Orthostatic hypotension Status: Acute Assessment and plan: recurrent this am, will dc lasix, continue entresto and continue to monitor. Current Visit: Yes (8) Anemia Status: Chronic Current Visit: Yes (9) Paroxysmal atrial fibrillation Status: Chronic Assessment and plan: Eliquis and amiodarone. TSH done this hospitalization, mildly elevated, will defer to medicine service for treatment. Current Visit: Yes <Lydia Wells - 02/27/17 15:29> - Time Spent With Patient Total time spent is greater than 50% in coordination of care (as documented) at patient's floor/unit and/or counseling patient: <Lance Alfredo - 03/01/17 13:35> Total time spent is greater than 50% in coordination of care (as documented) at patient's floor/unit and/or counseling patient: <Lydia Wells - 02/26/17 21:49> less than 15 minutes <Lydia Wells - 02/27/17 15:40> - Attestation Attestation Narrative: Recommendation After examining the patient I agree with the above assessment. I am involved in the formulation of the patient's plan of care. <Lance Alfredo - 03/01/17 13:35> Sepsis Assessment - Evaluation Sepsis screening result: No Definite Risk <Lydia Wells - 02/26/17 21:49> Hospital Course Summary Disclaimer: The visit summary below is not to be considered part of the above Progress Note. <Lance Alfredo - 03/01/17 13:35> The visit summary below is not to be considered part of the above Progress Note. <Lydia Wells - 02/26/17 21:49> Hospital Course: Cardiomyopathy, ischemic: 02/23/2017 echo: EF 20%, BAD, LVH, mod MR, AVR well seated, mild PHTN. He looks euvolemic. No orthopnea, no SOB, no edema. - Wt on 02/14 167 # and on 02/22 158# He has lost 9 # since admit. I/O not accurate. - cont lasix 10mg po daily. 02/16 K+ ok - BMP and Mag ordered for tomorrow. - Stop Coreg and lisinopril due to hypotension and lightheadedness. - discussed with pt the benefits outwt the risks for stopping BB and SARIAH now. - Monitor Wts, lytes and renal function. Orthostatic hypotension Wt down 9 pounds in 9 days. BP 90's to 100's usually in sitting position. Up to 131 in supine position. He is symptomatic with lightheadedness upon standing. - stop Coreg and lisinopril - they are being held the majority ofthe time due to low BP and HR. check orthostatics. with his cardiomyopathy, we wouldn't expect his BP to be high. Aortic valve disorder 02/23/2017 echo: AVR - tissue is well seated. ASHD (arteriosclerotic heart disease) s/p CABG in 2000 and 2014. No ASA since he is on Eliquis. Cont Crestor. Denies chest pain at this time. Mitral regurgitation 02/23/2017 echo: moderate MR. Anemia CBC ordered for am. On iron. Although he has a bruise on his back and side, not likely bleeding. No signs of bleeding. Fracture of T12 vertebra L1 vertebral fracture Paroxysmal atrial fibrillation HR sounds regular. Cont amiodarone for antiarrhythmic. Cont Eliquis for anticoagulant. Order ECG to confirm. Check BMP, Mag and TSH in am. 02/24/17 13:43 Start Entresto 24/26mg po BID and continue to monitor 02/25/17 14:47 Tolerating Entresto so far, continue to monitor <Lydia Wells - 02/27/17 15:40>
[2017-02-27] MEDS: PANTOPRAZOLE 40 MG TABLET PO SCH (06:24)
[2017-02-27] MEDS: FERROUS SULFATE 324 MG TABLET PO SCH (09:00)
[2017-02-27] MEDS: DOCUSATE SODIUM 100 MG CAPSULE PO SCH ×2 (09:00→22:09)
[2017-02-27] MEDS: POLYETHYL GLYCOL 3350 17gm PACKET PO SCH ×2 (09:01→22:11)
[2017-02-27] MEDS: AMIODARONE 200 MG TABLET PO SCH (09:01)
[2017-02-27] MEDS: APIXABAN 5 MG TABLET PO SCH ×2 (09:01→22:09)
[2017-02-27] MEDS: SACUBITRIL/VALSARTAN 24/26mg TABLET PO SCH ×2 (09:02→22:10)
[2017-02-27] MEDS: TRAMADOL 50 MG TABLET PO SCH ×4 (09:02→22:11)
[2017-02-27] MEDS ORDERED: FALL RISK - PHARMACY CONSULT MC PRN (11:44)
--- NOTE | 2017-02-27 15:43 | Cardiology Progress Note ---
Subjective Principal diagnosis: hypotension <Lydia Wells - 02/27/17 15:43> Interval history: Stanley is seen lying in his bed, he denies any lightheadedness or dizziness but admits hypotension after walking to lunch. Discussion with RN reveals systolic in the 70's. Recheck with systolic >110. Discussed at length with and pt the complexity of his low EF, need for medical treatment of cardiomopathy in the context of aggravated cardioneurogenic orthostasis. Recommend remaining hydrated, consistent use of compression stockings. He has jobst hose but choose not to wear them today. <Lydia Wells - 02/27/17 19:38> Exam Vital signs: Temperature 96.4 F L 03/01/17 08:00 Pulse Rate 60 03/01/17 08:00 Respiratory Rate 16 03/01/17 08:00 Blood Pressure 130/77 03/01/17 08:00 Pulse Oximetry 97 03/01/17 08:00 Oxygen Delivery Method Room Air <Lance Alfredo - 03/01/17 13:36> Temperature 97.9 F 02/27/17 08:00 Pulse Rate 63 02/27/17 08:00 Respiratory Rate 18 02/27/17 08:00 Blood Pressure 127/69 02/27/17 08:00 Pulse Oximetry 99 02/27/17 08:00 Oxygen Delivery Method Room Air <Lydia Wells - 02/27/17 15:43> Narrative: Laboratory Last Values WBC 5.2 T/MM3 (4.5-11.0) 02/24/17 04:43 RBC 3.58 M/MM3 (4.50-5.90) L 02/24/17 04:43 Hgb 10.9 GM/DL (13.5-17.5) L 02/24/17 04:43 Hct 34.2 % (41-53) L 02/24/17 04:43 MCV 95.5 UM3 (80-100) 02/24/17 04:43 MCH 30.4 UUG (26-34) 02/24/17 04:43 MCHC 31.9 GM/DL (31-37) 02/24/17 04:43 RDW Std Deviation 49.5 FL (36.9-50.2) 02/24/17 04:43 Plt Count 281 T/MM3 (130-400) 02/24/17 04:43 MPV 8.9 UM3 (9.4-12.4) L 02/24/17 04:43 Immature Gran % (Auto) 0.8 % (0.0-0.5) H 02/24/17 04:43 Neut % (Auto) 62.3 % (33-66) 02/24/17 04:43 Lymph % (Auto) 21.2 % (23-45) L 02/24/17 04:43 [place] % (Auto) 11.8 % (0-9.0) H 02/24/17 04:43 Eos % (Auto) 3.3 % (0-4) 02/24/17 04:43 Baso % (Auto) 0.6 % (0-2) 02/24/17 04:43 Neut # 3.2 T/MM3 (1.8-7.7) 02/24/17 04:43 Lymph # 1.1 T/MM3 (1-4.8) 02/24/17 04:43 [place] # 0.6 T/MM3 (0-0.8) 02/24/17 04:43 Eos # 0.2 T/MM3 (0-0.5) 02/24/17 04:43 Baso # 0.0 T/MM3 (0-0.2) 02/24/17 04:43 Abs Immat Gran (auto) 0.04 T/MM3 (0.00-0.03) H 02/24/17 04:43 Turbidity < 20 (0-20) 02/24/17 04:43 Sodium 142 MEQ/L (134-144) 02/24/17 04:43 Potassium 4.7 MEQ/L (3.6-5) 02/24/17 04:43 Chloride 104 MEQ/L (98-107) 02/24/17 04:43 Carbon Dioxide 28 MEQ/L (22-30) 02/24/17 04:43 Anion Gap 10 MEQ/L (5-15) 02/24/17 04:43 BUN 27.0 MG/DL (9-20) H 02/24/17 04:43 Creatinine 0.8 MG/DL (0.8-1.5) 02/24/17 04:43 GFR Calculation 93 02/24/17 04:43 BUN/Creatinine Ratio 34 RATIO (6-26) H 02/24/17 04:43 Glucose 87 MG/DL (75-110) 02/24/17 04:43 Calculated Osmolality 277 MOSM/KG (261-280) 02/24/17 04:43 Calcium 9.3 MG/DL (8.4-10.2) 02/24/17 04:43 Magnesium 2.3 MG/DL (1.6-2.3) 02/24/17 04:43 Iron 50 UG/DL (49-181) 02/15/17 14:04 TIBC 278 UG/DL (261-497) 02/15/17 14:04 % Saturation 18 % (13-59) 02/15/17 14:04 Ferritin 108 NG/ML (18-464) 02/15/17 14:04 Icterus Index < 2 (0-7) 02/24/17 04:43 TSH 6.37 MIU/L (0.47-4.68) H 02/24/17 04:43 Specimen Hemolysis < 15 (0-25) 02/24/17 04:43 Stool Occult Blood Negative 02/16/17 15:44 <Wernli,Lydia L - 02/27/17 19:38> - Constitutional no acute distress <Wernli,Lydia L - 02/27/17 15:43> - Routine HEENT Exam Head: Present: normocephalic, atraumatic <Wernli,Lydia L - 02/27/17 15:43> ENT: Present: mucous membranes moist <Wernli,Lydia L - 02/27/17 15:43> - Routine Neck Exam Absent: JVD <Wernli,Lydia L - 02/27/17 15:43> - Routine Respiratory Exam Present: decreased breath sounds <Wernli,Lydia L - 02/27/17 15:43> - Routine Cardiovascular Exam Present: murmur, irregular rhythm <Wernli,Lydia L - 02/27/17 15:43> - Routine Abdominal Exam Present: normoactive bowel sounds <Wernli,Lydia L - 02/27/17 15:43> - Routine Extremities Exam Present: no edema, pulses intact <Wernli,Lydia L - 02/27/17 15:43> - Routine Back/Spine/Pelvis Exam Back/Spine: Absent: full ROM <Lydia Wells - 02/27/17 15:43> - Routine Skin Exam Present: intact <Lydia Wells - 02/27/17 15:43> - Routine Neurological Exam Present: alert, oriented X3, CN II-XII intact <Lydia Wells - 02/27/17 15: 43> - Routine Psychiatric Exam Present: normal affect, normal thought process <Lydia Wells - 02/27/17 15 :43> Progress Note-A&P (1) L1 vertebral fracture Status: Chronic Current Visit: Yes (2) Fracture of T12 vertebra Status: Chronic Current Visit: Yes (3) Cardiomyopathy, ischemic Problem details: EF20% 02/23/17 Status: Chronic Current Visit: Yes (4) ASHD (arteriosclerotic heart disease) Status: Chronic Current Visit: Yes (5) Aortic valve disorder Status: Chronic Current Visit: Yes (6) Mitral regurgitation Status: Chronic Current Visit: Yes (7) Orthostatic hypotension Status: Acute Current Visit: Yes (8) Anemia Status: Chronic Current Visit: Yes (9) Paroxysmal atrial fibrillation Status: Chronic Current Visit: Yes <Lance Alfredo - 03/01/17 13:36> (1) L1 vertebral fracture Status: Chronic Current Visit: Yes (2) Cardiomyopathy, ischemic Problem details: EF20% 02/23/17 Status: Chronic Assessment and plan: EF 20%. He was previously on lisinopril 2.5mg and coreg 3.125mg bid and unable to tolerate 2/2 orthostatic hypotension. He was switched to low dose entrestro, no wash out period as lisinopril had been held previously. He continues to experience orthostatic hypotension, plan to get compressive stockings and push fluids. Lasix discontinued, given diuretic effect of Entresto. Will monitor fluid volume balance and vitals. In the context of his poor LV function, recommend attempting all modifying factors for orthostasis to remain on heart failure medical treatment. Current Visit: Yes (3) Fracture of T12 vertebra Status: Chronic Current Visit: Yes (4) ASHD (arteriosclerotic heart disease) Status: Chronic Assessment and plan: on eliquis 2/2 to AFib, continue statin therapy. Current Visit: Yes (5) Aortic valve disorder Status: Chronic Current Visit: Yes (6) Mitral regurgitation Status: Chronic Current Visit: Yes (7) Orthostatic hypotension Status: Acute Assessment and plan: recurrent this am, will dc lasix, continue entresto and continue to monitor. Current Visit: Yes (8) Anemia Status: Chronic Current Visit: Yes (9) Paroxysmal atrial fibrillation Status: Chronic Assessment and plan: Eliquis and amiodarone. Current Visit: Yes <Lydia Wells - 02/27/17 19:23> - Time Spent With Patient Total time spent is greater than 50% in coordination of care (as documented) at patient's floor/unit and/or counseling patient: <Lance Alfredo - 03/01/17 13:36> Total time spent is greater than 50% in coordination of care (as documented) at patient's floor/unit and/or counseling patient: <Lydia Wells - 02/27/17 15:43> less than 15 minutes <Lydia Wells - 02/27/17 15:43> - Attestation Attestation Narrative: Recommendation After examining the patient I agree with the above assessment. I am involved in the formulation of the patient's plan of care. <Lance Alfredo - 03/01/17 13:36> Sepsis Assessment - Evaluation Sepsis screening result: No Definite Risk <Lydia Wells - 02/27/17 15:43> Hospital Course Summary Disclaimer: The visit summary below is not to be considered part of the above Progress Note. <Lance Alfredo - 03/01/17 13:36> The visit summary below is not to be considered part of the above Progress Note. <Lydia Wells - 02/27/17 15:43> Hospital Course: Cardiomyopathy, ischemic: 02/23/2017 echo: EF 20%, BAD, LVH, mod MR, AVR well seated, mild PHTN. He looks euvolemic. No orthopnea, no SOB, no edema. - Wt on 02/14 167 # and on 02/22 158# He has lost 9 # since admit. I/O not accurate. - cont lasix 10mg po daily. 02/16 K+ ok - BMP and Mag ordered for tomorrow. - Stop Coreg and lisinopril due to hypotension and lightheadedness. - discussed with pt the benefits outwt the risks for stopping BB and SARIAH now. - Monitor Wts, lytes and renal function. Orthostatic hypotension Wt down 9 pounds in 9 days. BP 90's to 100's usually in sitting position. Up to 131 in supine position. He is symptomatic with lightheadedness upon standing. - stop Coreg and lisinopril - they are being held the majority ofthe time due to low BP and HR. check orthostatics. with his cardiomyopathy, we wouldn't expect his BP to be high. Aortic valve disorder 02/23/2017 echo: AVR - tissue is well seated. ASHD (arteriosclerotic heart disease) s/p CABG in 2000 and 2014. No ASA since he is on Eliquis. Cont Crestor. Denies chest pain at this time. Mitral regurgitation 02/23/2017 echo: moderate MR. Anemia CBC ordered for am. On iron. Although he has a bruise on his back and side, not likely bleeding. No signs of bleeding. Fracture of T12 vertebra L1 vertebral fracture Paroxysmal atrial fibrillation HR sounds regular. Cont amiodarone for antiarrhythmic. Cont Eliquis for anticoagulant. Order ECG to confirm. Check BMP, Mag and TSH in am. 02/24/17 13:43 Start Entresto 24/26mg po BID and continue to monitor 02/25/17 14:47 Tolerating Entresto so far, continue to monitor <Lydia Wells - 02/27/17 15:43>
[2017-02-27] MEDS: ROSUVASTATIN 20 MG TABLET PO SCH (22:09)
[2017-02-27] MEDS: MELATONIN 1 MG TABLET PO SCH (22:11)
[2017-02-28] MEDS: PANTOPRAZOLE 40 MG TABLET PO SCH (06:10)
[2017-02-28] MEDS: FERROUS SULFATE 324 MG TABLET PO SCH (09:28)
[2017-02-28] MEDS: DOCUSATE SODIUM 100 MG CAPSULE PO SCH ×2 (09:29→20:25)
[2017-02-28] MEDS: APIXABAN 5 MG TABLET PO SCH ×2 (09:29→20:25)
[2017-02-28] MEDS: SACUBITRIL/VALSARTAN 24/26mg TABLET PO SCH ×2 (09:30→22:25)
[2017-02-28] MEDS: AMIODARONE 200 MG TABLET PO SCH (09:30)
[2017-02-28] MEDS: POLYETHYL GLYCOL 3350 17gm PACKET PO SCH ×2 (09:30→20:26)
[2017-02-28] MEDS: TRAMADOL 50 MG TABLET PO SCH ×4 (09:31→21:00)
[2017-02-28] MEDS ORDERED: FALL RISK - PHARMACY CONSULT MC PRN (11:50)
--- NOTE | 2017-02-28 18:04 | Cardiology Progress Note ---
Subjective Principal diagnosis: hypotension, afib, cardiomyopathy <Roxanne Wellsca L - 18:03> Interval history: Pt is up setting in the dining room with a large number of family members. He is in great spirits. He reports feeling well all day, denies any near syncope or dizziness throughout today. He is wearing his compression stockings, he reports ambulating from IRU to the admissions desk. <Roxanne Wellsca L - 02/28/17 22:42> Exam Vital signs: Temperature 96.4 F L 03/01/17 08:00 Pulse Rate 60 03/01/17 08:00 Respiratory Rate 16 03/01/17 08:00 Blood Pressure 130/77 03/01/17 08:00 Pulse Oximetry 97 03/01/17 08:00 Oxygen Delivery Method Room Air <Lance Alfredo - 03/01/17 13:38> Temperature 96.4 F L 02/28/17 15:35 Pulse Rate 60 02/28/17 15:35 Respiratory Rate 14 02/28/17 15:35 Blood Pressure 100/64 02/28/17 15:35 Pulse Oximetry 96 02/28/17 15:35 Oxygen Delivery Method Room Air <Mitzy Wellsecca L - 02/28/17 18:03> - Constitutional no acute distress <BrittoniLydia L - 02/28/17 18:03> - Routine HEENT Exam Head: Present: normocephalic, atraumatic <BrittoniMitzyLydia L - 02/28/17 18:03> ENT: Present: mucous membranes moist <BrittoniLydia L - 02/28/17 18:03> - Routine Neck Exam Present: supple <BrittoniLydia L - 02/28/17 18:03> - Routine Respiratory Exam Present: CTA bilaterally <DiamondnliLydia L - 02/28/17 18:03> - Routine Cardiovascular Exam Present: murmur <DiamondnliLydia L - 02/28/17 18:03> - Routine Abdominal Exam Present: soft, normoactive bowel sounds <DiamondnliLydia L - 02/28/17 18:03> - Routine Extremities Exam Present: no edema, pulses intact. Absent: edema <Lydia Wells L - 02/28/17 18:03> - Routine Back/Spine/Pelvis Exam Back/Spine: Present: vertebral tenderness. Absent: full ROM <Lydia Wells - 02/28/17 18:03> - Routine Skin Exam Present: intact <Lydia Wells - 02/28/17 18:03> - Routine Neurological Exam Present: alert, oriented X3 <Lydia Wells - 02/28/17 18:03> - Routine Psychiatric Exam Present: normal affect, normal thought process <Lydia Wells - 02/28/17 18 :03> Progress Note-A&P (1) L1 vertebral fracture Status: Chronic Current Visit: Yes (2) Fracture of T12 vertebra Status: Chronic Current Visit: Yes (3) Cardiomyopathy, ischemic Problem details: EF20% 02/23/17 Status: Chronic Current Visit: Yes (4) ASHD (arteriosclerotic heart disease) Status: Chronic Current Visit: Yes (5) Aortic valve disorder Status: Chronic Current Visit: Yes (6) Mitral regurgitation Status: Chronic Current Visit: Yes (7) Orthostatic hypotension Status: Acute Current Visit: Yes (8) Anemia Status: Chronic Current Visit: Yes (9) Paroxysmal atrial fibrillation Status: Chronic Current Visit: Yes <LaurenLance ivy - 03/01/17 13:38> (1) L1 vertebral fracture Status: Chronic Current Visit: Yes (2) Cardiomyopathy, ischemic Problem details: EF20% 02/23/17 Status: Chronic Assessment and plan: EF 20%. He was previously on lisinopril 2.5mg and coreg 3.125mg bid and unable to tolerate 2/2 orthostatic hypotension. He was switched to low dose entrestro, no wash out period as lisinopril had been held previously. Lasix discontinued, given diuretic effect of Entresto. Will monitor fluid volume balance and vitals. In the context of his poor LV function, recommend attempting all modifying factors for orthostasis to remain on heart failure medical treatment. Keep well hydrated, daily use of compression stockings. Current Visit: Yes (3) Fracture of T12 vertebra Status: Chronic Current Visit: Yes (4) ASHD (arteriosclerotic heart disease) Status: Chronic Assessment and plan: on eliquis 2/2 to AFib, continue statin therapy. Current Visit: Yes (5) Aortic valve disorder Status: Chronic Assessment and plan: s/p tissue valve replacement, well seated on recent echo Current Visit: Yes (6) Mitral regurgitation Status: Chronic Current Visit: Yes (7) Orthostatic hypotension Status: Acute Assessment and plan: recurrent today by vitals, pt denies symptoms, continue entresto and continue to monitor. Current Visit: Yes (8) Anemia Status: Chronic Current Visit: Yes (9) Paroxysmal atrial fibrillation Status: Chronic Assessment and plan: Eliquis and amiodarone. Current Visit: Yes <RussellLydia L - 02/28/17 22:27> - Time Spent With Patient Total time spent is greater than 50% in coordination of care (as documented) at patient's floor/unit and/or counseling patient: <Lance Alfredo - 03/01/17 13:38> Total time spent is greater than 50% in coordination of care (as documented) at patient's floor/unit and/or counseling patient: <Lydia Wells - 02/28/17 18:03> less than 15 minutes <Lydia Wells - 02/28/17 22:42> - Attestation Attestation Narrative: Recommendation After examining the patient I agree with the above assessment. I am involved in the formulation of the patient's plan of care. <Lance Alfredo - 03/01/17 13:38> Sepsis Assessment - Evaluation Sepsis screening result: No Definite Risk <Lydia Wells - 02/28/17 18:03> Hospital Course Summary Disclaimer: The visit summary below is not to be considered part of the above Progress Note. <Lance Alfredo - 03/01/17 13:38> The visit summary below is not to be considered part of the above Progress Note. <RussellLydia L - 02/28/17 18:03> Hospital Course: Cardiomyopathy, ischemic: 02/23/2017 echo: EF 20%, BAD, LVH, mod MR, AVR well seated, mild PHTN. He looks euvolemic. No orthopnea, no SOB, no edema. - Wt on 02/14 167 # and on 02/22 158# He has lost 9 # since admit. I/O not accurate. - cont lasix 10mg po daily. 02/16 K+ ok - BMP and Mag ordered for tomorrow. - Stop Coreg and lisinopril due to hypotension and lightheadedness. - discussed with pt the benefits outwt the risks for stopping BB and SARIAH now. - Monitor Wts, lytes and renal function. Orthostatic hypotension Wt down 9 pounds in 9 days. BP 90's to 100's usually in sitting position. Up to 131 in supine position. He is symptomatic with lightheadedness upon standing. - stop Coreg and lisinopril - they are being held the majority ofthe time due to low BP and HR. check orthostatics. with his cardiomyopathy, we wouldn't expect his BP to be high. Aortic valve disorder 02/23/2017 echo: AVR - tissue is well seated. ASHD (arteriosclerotic heart disease) s/p CABG in 2000 and 2014. No ASA since he is on Eliquis. Cont Crestor. Denies chest pain at this time. Mitral regurgitation 02/23/2017 echo: moderate MR. Anemia CBC ordered for am. On iron. Although he has a bruise on his back and side, not likely bleeding. No signs of bleeding. Fracture of T12 vertebra L1 vertebral fracture Paroxysmal atrial fibrillation HR sounds regular. Cont amiodarone for antiarrhythmic. Cont Eliquis for anticoagulant. Order ECG to confirm. Check BMP, Mag and TSH in am. 02/24/17 13:43 Start Entresto 24/26mg po BID and continue to monitor 02/25/17 14:47 Tolerating Entresto so far, continue to monitor <Lydia Wells - 02/28/17 18:03>
[2017-02-28] MEDS: ROSUVASTATIN 20 MG TABLET PO SCH (20:24)
[2017-02-28] MEDS: MELATONIN 1 MG TABLET PO SCH (20:24)
[2017-03-01] MEDS: PANTOPRAZOLE 40 MG TABLET PO SCH (06:35)
[2017-03-01] MEDS: SACUBITRIL/VALSARTAN 24/26mg TABLET PO SCH ×2 (08:40→21:40)
[2017-03-01] MEDS: DOCUSATE SODIUM 100 MG CAPSULE PO SCH ×2 (08:40→21:40)
[2017-03-01] MEDS: APIXABAN 5 MG TABLET PO SCH ×2 (08:40→21:40)
[2017-03-01] MEDS: AMIODARONE 200 MG TABLET PO SCH (08:40)
[2017-03-01] MEDS: FERROUS SULFATE 324 MG TABLET PO SCH (08:40)
[2017-03-01] MEDS: POLYETHYL GLYCOL 3350 17gm PACKET PO SCH ×2 (08:41→21:40)
[2017-03-01] MEDS: TRAMADOL 50 MG TABLET PO SCH ×4 (08:44→21:39)
--- NOTE | 2017-03-01 16:51 | Cardiology Progress Note ---
Subjective Principal diagnosis: hypotension, afib, cardiomyopathy <Yady Womack 03/01 16:51> Interval history: Stanley is laying on his bed in IRU, his is at the bedside and has many questions concerning diet, salt restriction, fluid restriction, and patient's Mitral valve on echo. <Yady Womack - 03/02/17 11:30> Exam Vital signs: Temperature 97.7 F 03/02/17 07:51 Pulse Rate 61 03/02/17 07:51 Respiratory Rate 16 03/02/17 07:51 Blood Pressure 119/73 03/02/17 07:51 Pulse Oximetry 98 03/02/17 07:51 Oxygen Delivery Method Room Air <Lance Alfredo - 03/02/17 13:44> Temperature 97.7 F 03/01/17 15:55 Pulse Rate 84 03/01/17 15:55 Respiratory Rate 12 03/01/17 15:55 Blood Pressure 111/65 03/01/17 15:55 Pulse Oximetry 96 03/01/17 15:55 Oxygen Delivery Method Room Air <aYdy Womack 03/01/17 16:51> - Constitutional no acute distress, well nourished, cooperative <Yady Womack 03/01/17 16: 51> - Routine HEENT Exam Head: Present: normocephalic <Yady Womack 03/01/17 16:51> ENT: Present: mucous membranes moist <Yady Womack 03/01/17 16:51> - Routine Neck Exam Absent: JVD, carotid bruit <Yady Womack 03/01/17 16:51> - Routine Chest/Breast/Axilla Exam Chest wall: Present: pacemaker. Absent: tenderness <Yady Womack 16:51> - Routine Respiratory Exam Present: CTA bilaterally. Absent: rales, wheezes <Yady Womack 03/01/17 16:51> - Routine Cardiovascular Exam Present: RRR, murmur (III/). Absent: JVD <Yady Womack 03/01/17 16:51> - Routine Abdominal Exam Present: soft, normoactive bowel sounds <Yady Womack 03/01/17 16:51> - Routine Extremities Exam Present: no edema <Yady Womack - 03/01/17 16:51> - Routine Skin Exam Present: intact, dry, warm <Yady Womack - 03/01/17 16:51> - Routine Neurological Exam Present: alert, oriented X3 <Yady Womack - 03/01/17 16:51> - Routine Psychiatric Exam Present: normal affect, normal thought process <Yady Womack - 03/01/17 16: 51> - Additional findings Additional findings: Laboratory Results - last 48 hr 03/01/17 04:53 Turbidity < 20 Sodium 143 Potassium 4.4 Chloride 103 Carbon Dioxide 30 Anion Gap 10 BUN 26.0 H Creatinine 0.9 GFR Calculation 81 BUN/Creatinine Ratio 29 H Glucose 90 Calculated Osmolality 280 Calcium 9.7 Icterus Index < 2 Specimen Hemolysis < 15 Acetaminophen (Tylenol) 325 - 650 mg PO Q6H PRN PRN Reason: Pain Last Admin: 02/25/17 21:08 Dose: 650 mg Amiodarone HCl (Pacerone) 200 mg PO DAILY [facility] Last Admin: 03/01/17 08:40 Dose: 200 mg Apixaban (Eliquis) 2.5 mg PO BID [facility] Last Admin: 03/01/17 08:40 Dose: 2.5 mg Docusate Sodium (Colace) 100 mg PO BID [facility] Last Admin: 03/01/17 08:40 Dose: 100 mg Ferrous Sulfate (Feosol) 324 mg PO WB [facility] Last Admin: 03/01/17 08:40 Dose: 324 mg Melatonin (Melatonin) 3 mg PO HS [facility] Last Admin: 02/28/17 20:24 Dose: 3 mg Pantoprazole Sodium (Protonix Tab) 40 mg PO ACB [facility] Last Admin: 03/01/17 06:35 Dose: 40 mg Polyethylene Glycol (Miralax) 17 gm PO BID [facility] Last Admin: 03/01/17 08:41 Dose: 17 gm Rosuvastatin Calcium (Crestor) 40 mg PO 2100 [facility] Last Admin: 02/28/17 20:24 Dose: 40 mg Sacubitril/Valsartan (Entresto 24 Mg-26 Mg Tablet) 1 tab PO BID [facility] Last Admin: 03/01/17 08:40 Dose: 1 tab Tramadol HCl (Ultram) 50 mg PO QID [facility] Last Admin: 03/01/17 12:27 Dose: 50 mg <Yady Womack Theresa - 03/01/17 16:51> Progress Note-A&P (1) L1 vertebral fracture Status: Chronic Current Visit: Yes (2) Fracture of T12 vertebra Status: Chronic Current Visit: Yes (3) Cardiomyopathy, ischemic Problem details: EF20% 02/23/17 Status: Chronic Current Visit: Yes (4) ASHD (arteriosclerotic heart disease) Status: Chronic Current Visit: Yes (5) Aortic valve disorder Status: Chronic Current Visit: Yes (6) Mitral regurgitation Status: Chronic Current Visit: Yes (7) Orthostatic hypotension Status: Acute Current Visit: Yes (8) Anemia Status: Chronic Current Visit: Yes (9) Paroxysmal atrial fibrillation Status: Chronic Current Visit: Yes <Lance Alfredo - 03/02/17 13:44> (1) L1 vertebral fracture Status: Chronic Current Visit: Yes (2) Fracture of T12 vertebra Status: Chronic Current Visit: Yes (3) Cardiomyopathy, ischemic Problem details: EF20% 02/23/17 Status: Chronic Assessment and plan: EF 20%. He was previously on lisinopril 2.5mg and coreg 3.125mg bid and unable to tolerate 2/2 orthostatic hypotension. He was switched to low dose entrestro, no wash out period as lisinopril had been held previously. Lasix discontinued, given diuretic effect of Entresto. Will monitor fluid volume balance and vitals. In the context of his poor LV function, recommend attempting all modifying factors for orthostasis to remain on heart failure medical treatment. Keep well hydrated, daily use of compression stockings. Current Visit: Yes (4) ASHD (arteriosclerotic heart disease) Status: Chronic Assessment and plan: on eliquis 2/2 to AFib, continue statin therapy. Current Visit: Yes (5) Aortic valve disorder Status: Chronic Assessment and plan: s/p tissue valve replacement, well seated on recent echo Current Visit: Yes (6) Mitral regurgitation Status: Chronic Current Visit: Yes (7) Orthostatic hypotension Status: Acute Assessment and plan: BP stable today, continue Entresto and continue to monitor. Current Visit: Yes (8) Anemia Status: Chronic Current Visit: Yes (9) Paroxysmal atrial fibrillation Status: Chronic Assessment and plan: Eliquis and amiodarone. Current Visit: Yes <Yady Womack - 03/02/17 11:29> - Time Spent With Patient Total time spent is greater than 50% in coordination of care (as documented) at patient's floor/unit and/or counseling patient: <Lance Alfredo - 03/02/17 13:44> Total time spent is greater than 50% in coordination of care (as documented) at patient's floor/unit and/or counseling patient: <Yady Womack - 03/01/17 16:51> less than 15 minutes <Yady Womack 03/02/17 11:30> - Attestation Attestation Narrative: Recommendation After examining the patient I agree with the above assessment. I am involved in the formulation of the patient's plan of care. <Lance Alfredo - 03/02/17 13:44> Sepsis Assessment - Evaluation Sepsis screening result: No Definite Risk <Yady Womack 03/01/17 16:51> Hospital Course Summary Disclaimer: The visit summary below is not to be considered part of the above Progress Note. <Lance Alfredo - 03/02/17 13:44> The visit summary below is not to be considered part of the above Progress Note. <Yady Womack 03/01/17 16:51> Hospital Course: Cardiomyopathy, ischemic: 02/23/2017 echo: EF 20%, BAD, LVH, mod MR, AVR well seated, mild PHTN. He looks euvolemic. No orthopnea, no SOB, no edema. - Wt on 02/14 167 # and on 02/22 158# He has lost 9 # since admit. I/O not accurate. - cont lasix 10mg po daily. 02/16 K+ ok - BMP and Mag ordered for tomorrow. - Stop Coreg and lisinopril due to hypotension and lightheadedness. - discussed with pt the benefits outwt the risks for stopping BB and SARIHA now. - Monitor Wts, lytes and renal function. Orthostatic hypotension Wt down 9 pounds in 9 days. BP 90's to 100's usually in sitting position. Up to 131 in supine position. He is symptomatic with lightheadedness upon standing. - stop Coreg and lisinopril - they are being held the majority ofthe time due to low BP and HR. check orthostatics. with his cardiomyopathy, we wouldn't expect his BP to be high. Aortic valve disorder 02/23/2017 echo: AVR - tissue is well seated. ASHD (arteriosclerotic heart disease) s/p CABG in 2000 and 2014. No ASA since he is on Eliquis. Cont Crestor. Denies chest pain at this time. Mitral regurgitation 02/23/2017 echo: moderate MR. Anemia CBC ordered for am. On iron. Although he has a bruise on his back and side, not likely bleeding. No signs of bleeding. Fracture of T12 vertebra L1 vertebral fracture Paroxysmal atrial fibrillation HR sounds regular. Cont amiodarone for antiarrhythmic. Cont Eliquis for anticoagulant. Order ECG to confirm. Check BMP, Mag and TSH in am. 02/24/17 13:43 Start Entresto 24/26mg po BID and continue to monitor 02/25/17 14:47 Tolerating Entresto so far, continue to monitor <Yady Womack - 03/01/17 16:51>
[2017-03-01] MEDS: MELATONIN 1 MG TABLET PO SCH (21:39)
[2017-03-01] MEDS: ROSUVASTATIN 20 MG TABLET PO SCH (22:56)
[2017-03-02] MEDS: PANTOPRAZOLE 40 MG TABLET PO SCH (06:26)
[2017-03-02] MEDS: FERROUS SULFATE 324 MG TABLET PO SCH (08:58)
[2017-03-02] MEDS: TRAMADOL 50 MG TABLET PO SCH ×4 (08:58→20:20)
[2017-03-02] MEDS: DOCUSATE SODIUM 100 MG CAPSULE PO SCH ×2 (08:58→20:19)
[2017-03-02] MEDS: SACUBITRIL/VALSARTAN 24/26mg TABLET PO SCH ×2 (08:58→20:20)
[2017-03-02] MEDS: APIXABAN 5 MG TABLET PO SCH ×2 (08:58→20:19)
[2017-03-02] MEDS: AMIODARONE 200 MG TABLET PO SCH (08:59)
[2017-03-02] MEDS: POLYETHYL GLYCOL 3350 17gm PACKET PO SCH ×2 (08:59→20:21)
[2017-03-02] MEDS ORDERED: FALL RISK - PHARMACY CONSULT MC PRN (10:52)
--- NOTE | 2017-03-02 11:35 | Cardiology Progress Note ---
Subjective Principal diagnosis: hypotension, afib, cardiomyopathy <Yady Womack - 03/02 11:35> Interval history: Stanley is seen this morning during breakfast in the dining room in IRU. He denies chest pain, dyspnea, dizziness, lightheadedness or near syncope. <Yady Womack - 03/02/17 11:35> Exam Vital signs: Temperature 98.5 F 03/03/17 08:01 Pulse Rate 80 03/03/17 08:01 Respiratory Rate 14 03/03/17 08:01 Blood Pressure 118/63 03/03/17 08:20 Pulse Oximetry 98 03/03/17 08:01 Oxygen Delivery Method Room Air <Lance Alfredo - 03/04/17 14:43> Temperature 97.7 F 03/02/17 07:51 Pulse Rate 61 03/02/17 07:51 Respiratory Rate 16 03/02/17 07:51 Blood Pressure 119/73 03/02/17 07:51 Pulse Oximetry 98 03/02/17 07:51 Oxygen Delivery Method Room Air <Yady Womack 03/02/17 11:35> - Constitutional no acute distress, thin, cooperative <Yady Womack 03/02/17 11:35> - Routine HEENT Exam Head: Present: normocephalic <Yady Womack 03/02/17 11:35> ENT: Present: mucous membranes moist <Yady Womack 03/02/17 11:35> - Routine Neck Exam Absent: JVD, carotid bruit <Yady Womack 03/02/17 11:35> - Routine Chest/Breast/Axilla Exam Chest wall: Present: pacemaker. Absent: tenderness <Yady Womack 11:35> - Routine Respiratory Exam Present: CTA bilaterally. Absent: rales, wheezes <Yady Womack 03/02/17 11:35> - Routine Cardiovascular Exam Present: murmur (III/). Absent: JVD <Yady Womack 03/02/17 11:35> - Routine Abdominal Exam Present: soft, normoactive bowel sounds <Yady Womack 03/02/17 11:35> - Routine Extremities Exam Present: no edema <Yady Womack - 03/02/17 11:35> - Routine Skin Exam Present: intact, dry, warm <Yady Womack - 03/02/17 11:35> - Routine Neurological Exam Present: alert, oriented X3 <Yady Womack - 03/02/17 11:35> - Routine Psychiatric Exam Present: normal affect, normal thought process <Yady Womack 03/02/17 11: 35> Progress Note-A&P (1) L1 vertebral fracture Status: Chronic (2) Fracture of T12 vertebra Status: Chronic (3) Cardiomyopathy, ischemic Problem details: EF20% 02/23/17 Status: Chronic (4) ASHD (arteriosclerotic heart disease) Status: Chronic (5) Aortic valve disorder Status: Chronic (6) Mitral regurgitation Status: Chronic (7) Orthostatic hypotension Status: Acute (8) Anemia Status: Chronic (9) Paroxysmal atrial fibrillation Status: Chronic <Lance Alfredo - 03/04/17 14:43> (1) L1 vertebral fracture Status: Chronic (2) Fracture of T12 vertebra Status: Chronic (3) Cardiomyopathy, ischemic Problem details: EF20% 02/23/17 Status: Chronic Assessment and plan: EF 20%. He was previously on lisinopril 2.5mg and coreg 3.125mg bid and unable to tolerate 2/2 orthostatic hypotension. He was switched to low dose entrestro, no wash out period as lisinopril had been held previously. Lasix discontinued, given diuretic effect of Entresto. Will monitor fluid volume balance and vitals. In the context of his poor LV function, recommend attempting all modifying factors for orthostasis to remain on heart failure medical treatment. Keep well hydrated, daily use of compression stockings. (4) ASHD (arteriosclerotic heart disease) Status: Chronic Assessment and plan: on eliquis 2/2 to AFib, continue statin therapy. (5) Aortic valve disorder Status: Chronic Assessment and plan: s/p tissue valve replacement, well seated on recent echo (6) Mitral regurgitation Status: Chronic (7) Orthostatic hypotension Status: Acute Assessment and plan: BP stable today, continue Entresto and continue to monitor. (8) Anemia Status: Chronic (9) Paroxysmal atrial fibrillation Status: Chronic Assessment and plan: Eliquis and amiodarone. <Yady Womack - 03/02/17 11:39> - Time Spent With Patient Total time spent is greater than 50% in coordination of care (as documented) at patient's floor/unit and/or counseling patient: <Lance Alfredo - 03/04/17 14:43> Total time spent is greater than 50% in coordination of care (as documented) at patient's floor/unit and/or counseling patient: <Yady Womack - 03/02/17 11:35> less than 15 minutes <Yady Womack 03/02/17 11:40> - Attestation Attestation Narrative: Recommendation After examining the patient I agree with the above assessment. I am involved in the formulation of the patient's plan of care. <Lance Alfredo - 03/04/17 14:43> Sepsis Assessment - Evaluation Sepsis screening result: No Definite Risk <Yady Womack 03/02/17 11:35> Hospital Course Summary Disclaimer: The visit summary below is not to be considered part of the above Progress Note. <Lance Alfredo - 03/04/17 14:43> The visit summary below is not to be considered part of the above Progress Note. <Yady Womack - 03/02/17 11:35> Hospital Course: Cardiomyopathy, ischemic: 02/23/2017 echo: EF 20%, BAD, LVH, mod MR, AVR well seated, mild PHTN. He looks euvolemic. No orthopnea, no SOB, no edema. - Wt on 02/14 167 # and on 02/22 158# He has lost 9 # since admit. I/O not accurate. - cont lasix 10mg po daily. 02/16 K+ ok - BMP and Mag ordered for tomorrow. - Stop Coreg and lisinopril due to hypotension and lightheadedness. - discussed with pt the benefits outwt the risks for stopping BB and SARIAH now. - Monitor Wts, lytes and renal function. Orthostatic hypotension Wt down 9 pounds in 9 days. BP 90's to 100's usually in sitting position. Up to 131 in supine position. He is symptomatic with lightheadedness upon standing. - stop Coreg and lisinopril - they are being held the majority ofthe time due to low BP and HR. check orthostatics. with his cardiomyopathy, we wouldn't expect his BP to be high. Aortic valve disorder 02/23/2017 echo: AVR - tissue is well seated. ASHD (arteriosclerotic heart disease) s/p CABG in 2000 and 2014. No ASA since he is on Eliquis. Cont Crestor. Denies chest pain at this time. Mitral regurgitation 02/23/2017 echo: moderate MR. Anemia CBC ordered for am. On iron. Although he has a bruise on his back and side, not likely bleeding. No signs of bleeding. Fracture of T12 vertebra L1 vertebral fracture Paroxysmal atrial fibrillation HR sounds regular. Cont amiodarone for antiarrhythmic. Cont Eliquis for anticoagulant. Order ECG to confirm. Check BMP, Mag and TSH in am. 02/24/17 13:43 Start Entresto 24/26mg po BID and continue to monitor 02/25/17 14:47 Tolerating Entresto so far, continue to monitor <Yady Womack - 03/02/17 11:35>
--- NOTE | 2017-03-02 13:57 | IRU Team Meeting ---
IRU Team Meeting - Nursing Vital Signs: Vital Signs - 24 hr 03/01/17 15:55 03/01/17 21:24 03/02/17 07:51 Temperature 97.7 F 98.6 F 97.7 F Pulse Rate 84 60 61 Respiratory Rate 12 18 16 Blood Pressure 111/65 98/56 119/73 Pulse Oximetry 96 97 98 Current Medications: Acetaminophen (Tylenol) 325 - 650 mg PO Q6H PRN PRN Reason: Pain Last Admin: 02/25/17 21:08 Dose: 650 mg Amiodarone HCl (Pacerone) 200 mg PO DAILY [facility] Last Admin: 03/02/17 08:59 Dose: 200 mg Apixaban (Eliquis) 2.5 mg PO BID [facility] Last Admin: 03/02/17 08:58 Dose: 2.5 mg Docusate Sodium (Colace) 100 mg PO BID [facility] Last Admin: 03/02/17 08:58 Dose: 100 mg Ferrous Sulfate (Feosol) 324 mg PO WB [facility] Last Admin: 03/02/17 08:58 Dose: 324 mg Melatonin (Melatonin) 3 mg PO HS [facility] Last Admin: 03/01/17 21:39 Dose: 3 mg Pantoprazole Sodium (Protonix Tab) 40 mg PO ACB [facility] Last Admin: 03/02/17 06:26 Dose: 40 mg Polyethylene Glycol (Miralax) 17 gm PO BID [facility] Last Admin: 03/02/17 08:59 Dose: 17 gm Rosuvastatin Calcium (Crestor) 40 mg PO 2100 [facility] Last Admin: 03/01/17 22:56 Dose: 40 mg Sacubitril/Valsartan (Entresto 24 Mg-26 Mg Tablet) 1 tab PO BID [facility] Last Admin: 03/02/17 08:58 Dose: 1 tab Tramadol HCl (Ultram) 50 mg PO QID [facility] Last Admin: 03/02/17 12:05 Dose: 50 mg - Physical Therapy Supine to Sit Bed Mobility Ability: Modified Independent Sit to Supine Bed Mobility Ability: Modified Independent Sit to Stand Chair Transfer Ability: Modified Independent Stand to Sit Chair Transfer Ability: Modified Independent - Occupational Therapy Eating Ability: Independent Grooming Ability: Modified Independent Bathing Ability: Modified Independent Upper Body Dressing Ability: Maximal Assistance Upper Body Dressing Comment: someone has to apply brace - Care Plan Anticipated Length of Stay: 1 (day) Anticipated DC Destination: Home, Self Care
--- NOTE | 2017-03-02 15:07 | IRU Progress Note ---
- Subjective/Serverity of Illness Patient is near ready for discharge. He has some concerns about low blood pressure, but the trend of his blood pressure is up particular today. His feels comfortable in putting his brace on. Exam Vital Signs: Temperature 97.7 F 03/02/17 07:51 Pulse Rate 61 03/02/17 07:51 Respiratory Rate 16 03/02/17 07:51 Blood Pressure 119/73 03/02/17 07:51 Pulse Oximetry 98 03/02/17 07:51 Oxygen Delivery Method Room Air Height/Weight/BMI: Height 1.79 m Weight 71.1 kg Body Mass Index 23.7 - Constitutional Present: no acute distress Sepsis Assessment - Evaluation Sepsis screening result: No Definite Risk IRU A/P DVT Prophylaxis: SCD's (will probably go home with home health. Anticipate discharge tomorrow. We'll have nurse check his blood pressure both sitting and standing a couple of times before discharge.), Eliquis - Course Hospital Course: Kendell Vargas MD: 02/16/17 11:06 Continues to work with therapy. Back pain is controlled but he is on regular doses of Percocet every 4 hours. Constipation is an issue. Congestive cardiomyopathy noted with ejection fraction 10-15 percent. Need to limit exertion in this regard. Remains on SARIAH inhibitor. We will add Colace on a regular basis. Today I decreased his Eliquis to 2.5 mg twice daily based on his previous dosage. 02/17/17 10:02 Some decline with regard to his cognition today. Likely this is a "delirium" related to hypotension plus pain medication. Reduce Percocet 4 times daily. Continue to work with therapy. 02/18/17 11:14 Still has episodes of confusion. Stop Percocet and start tramadol today. Continued work with him. Does have lightheadedness and hypotension which impedes therapy progress. 02/22/17 10:34 Continues to complain of not thinking right or being a bit confused. However today he is oriented to place person and date including the month, day and year. Does have dyspnea with activity. Pain noted in the back with prolonged sitting. He is progressing with therapy. 02/23/17 10:24 Pain continues to be a barrier to progress along with his lightheadedness and poor exercise tolerance related to his ischemic cardiomyopathy. He is progressing with therapy but still requires quite a bit of assistance with dressing and toileting. Unable to put on his brace by himself at present. Disposition may be an issue. We are asking family to be there at noon for the team conference. 02/24/17 10:[address] Alfredo and his carvedilol and lisinopril were discontinued. Blood pressures will continue to be monitored. Family training regarding the brace will be undertaken. He continues to cooperate with therapy. His repeat hemoglobin is improved. 02/26/17 09:44 Continues to improve with therapy. Orthostatic hypotension again noted today when he was up walking. Multiple reasons exist for this including his ischemic cardiomyopathy with ejection fraction of 20% plus his medications. has been involved with training for doffing and donning the brace. Anticipate that he can go home early next week if medically stable. - Interventions to Obtain Goals PT Treatment Plan: Balance/Proprioception, Functional Activities, Gait Training , Patient/Family Education, Therapeutic Exercise OT Treatment Plan: ADL (Basic Care), Balance Training, IADL, Pt./Family Education, Ther. Exercise for ADL
[2017-03-02] MEDS: MELATONIN 1 MG TABLET PO SCH (20:19)
[2017-03-02] MEDS: ROSUVASTATIN 20 MG TABLET PO SCH (20:19)
[2017-03-02 20:38] VITALS: O2SAT 98
[2017-03-03] MEDS: PANTOPRAZOLE 40 MG TABLET PO SCH (07:00)
[2017-03-03 08:01] VITALS: PULSE 80; RESP 14; TEMP 98.5
[2017-03-03 08:20] VITALS: BP 118/63
[2017-03-03] MEDS: FERROUS SULFATE 324 MG TABLET PO SCH (08:22)
[2017-03-03] MEDS: POLYETHYL GLYCOL 3350 17gm PACKET PO SCH (08:22)
[2017-03-03] MEDS: AMIODARONE 200 MG TABLET PO SCH (08:22)
[2017-03-03] MEDS: SACUBITRIL/VALSARTAN 24/26mg TABLET PO SCH (08:22)
[2017-03-03] MEDS: TRAMADOL 50 MG TABLET PO SCH ×2 (08:23→12:23)
[2017-03-03] MEDS: APIXABAN 5 MG TABLET PO SCH (08:23)
[2017-03-03] MEDS: DOCUSATE SODIUM 100 MG CAPSULE PO SCH (08:23)
--- NOTE | 2017-03-03 14:11 | Discharge Instructions ---
Discharge Plan - Med Rec/Dispo Referrals/Follow Up: Morro Caceres DO [Family Provider] - (Patient will need to call Dr. Caceres' s office and enroll in [facility] before scheduling a follow-up appt. [phone].) Teresa Instructions: Hypotension (GEN) Prescriptions: New Apixaban [Eliquis] 2.5 mg PO BID tablet Melatonin 3 mg PO HS tablet Sacubitril/Valsartan 24-26 [Entresto 24 mg-26 mg Tablet] 1 tab PO BID tablet Docusate Sodium [Colace] 100 mg PO BID capsule Tramadol [Ultram] 50 mg PO QID tablet Continue Amiodarone HCl 1 tab PO DAILY #0 Docusate Sodium [Stool Softener] 100 mg PO PM PRN #0 tab PRN Reason: Constipation /Stool Softening Rosuvastatin Calcium 40 mg PO HS Acetaminophen 325 - 650 mg PO Q6H PRN PRN Reason: Pain Ferrous Sulfate 325 mg PO DAILY Pantoprazole Tab [Protonix Tab] 1 tab PO ACB Polyethylene Glycol 3350 [Miralax] 17 gm PO BID Discontinued Carvedilol 6.25 mg PO BID #0 Furosemide [Lasix] 0.5 tab PO DAILY HEPARIN 5,000unit/ml 1 ml SQ Q8H Oxycodone *Ir* [Roxicodone *Ir*] 5 mg PO Q4H PRN PRN Reason: Severe Pain Lisinopril [Prinivil] 2.5 mg PO HS Discharge Instructions/Outpatient Orders: Final Provider Discharge Instructions Location: Determined By Patient - Disposition [address] [place] [address]
--- NOTE | 2017-03-03 14:44 | Discharge Summary ---
Discharge Information Date of admission: 02/14/17 14:13 Anticipated date of discharge: 03/03/17 Attending Physician: Kendell Vargas MD Primary care physician: Morro Caceres DO Consults: 02/14/17 15:37 Physician Consult [CONS] Routine Consulting Provider: Morro Caceres Reason For Exam: Medical management Ordering Provider has Notified [employer]: No 02/23/17 15:15 Physician Consult [CONS] Routine Consulting Provider: Lance Alfredo Reason For Exam: ejection fraction and low BP Ordering Provider has Notified [employer]: No - Discharge Diagnosis Discharge Diagnosis: Burst fracture T12 Hypotension - Laboratory Labs: 02/24/17 04:43 03/01/17 04:53 History of Present Illness HPI: 03/03/17 14:41 This patient was admitted. A burst fracture of T12 occurring after a fall off a ladder. Patient transferred to the rehabilitation unit for improvement in his ability to ambulate. He has been instructed in use of his brace and his is been capable of putting out on him. He has had some problems with hypotension and is been seen in consultation by Dr. Bravo. Some of his cardiac medications and stopped and his pressures seem to have stabilized fairly well. He is to follow-up in [place] with a neurosurgeon that took care of him. Now mid- March. Is being discharged and home health will follow him while at home. Hospital Course This is a general summary of the patient's hospital course. For more details refer to the complete medical record. Hospital course: Cardiomyopathy, ischemic: 02/23/2017 echo: EF 20%, BAD, LVH, mod MR, AVR well seated, mild PHTN. He looks euvolemic. No orthopnea, no SOB, no edema. - Wt on 02/14 167 # and on 02/22 158# He has lost 9 # since admit. I/O not accurate. - cont lasix 10mg po daily. 02/16 K+ ok - BMP and Mag ordered for tomorrow. - Stop Coreg and lisinopril due to hypotension and lightheadedness. - discussed with pt the benefits outwt the risks for stopping BB and SARIAH now. - Monitor Wts, lytes and renal function. Orthostatic hypotension Wt down 9 pounds in 9 days. BP 90's to 100's usually in sitting position. Up to 131 in supine position. He is symptomatic with lightheadedness upon standing. - stop Coreg and lisinopril - they are being held the majority ofthe time due to low BP and HR. check orthostatics. with his cardiomyopathy, we wouldn't expect his BP to be high. Aortic valve disorder 02/23/2017 echo: AVR - tissue is well seated. ASHD (arteriosclerotic heart disease) s/p CABG in 2000 and 2014. No ASA since he is on Eliquis. Cont Crestor. Denies chest pain at this time. Mitral regurgitation 02/23/2017 echo: moderate MR. Anemia CBC ordered for am. On iron. Although he has a bruise on his back and side, not likely bleeding. No signs of bleeding. Fracture of T12 vertebra L1 vertebral fracture Paroxysmal atrial fibrillation HR sounds regular. Cont amiodarone for antiarrhythmic. Cont Eliquis for anticoagulant. Order ECG to confirm. Check BMP, Mag and TSH in am. 02/24/17 13:43 Start Entresto 24/26mg po BID and continue to monitor 02/25/17 14:47 Tolerating Entresto so far, continue to monitor Discharge Plan - Med Rec/Dispo Referrals/Follow Up: Morro Caceres DO [Family Provider] - (Patient will need to call Dr. Caceres' s office and enroll in [facility] before scheduling a follow-up appt. .) Teresa Instructions: Hypotension (GEN) Prescriptions: New Apixaban [Eliquis] 2.5 mg PO BID tablet Melatonin 3 mg PO HS tablet Sacubitril/Valsartan 24-26 [Entresto 24 mg-26 mg Tablet] 1 tab PO BID tablet Docusate Sodium [Colace] 100 mg PO BID capsule Tramadol [Ultram] 50 mg PO QID tablet Continue Amiodarone HCl 1 tab PO DAILY #0 Docusate Sodium [Stool Softener] 100 mg PO PM PRN #0 tab PRN Reason: Constipation /Stool Softening Rosuvastatin Calcium 40 mg PO HS Acetaminophen 325 - 650 mg PO Q6H PRN PRN Reason: Pain Ferrous Sulfate 325 mg PO DAILY Pantoprazole Tab [Protonix Tab] 1 tab PO ACB Polyethylene Glycol 3350 [Miralax] 17 gm PO BID Discontinued Carvedilol 6.25 mg PO BID #0 Furosemide [Lasix] 0.5 tab PO DAILY HEPARIN 5,000unit/ml 1 ml SQ Q8H Oxycodone *Ir* [Roxicodone *Ir*] 5 mg PO Q4H PRN PRN Reason: Severe Pain Lisinopril [Prinivil] 2.5 mg PO HS Discharge Instructions/Outpatient Orders: Final Provider Discharge Instructions Location: Determined By Patient - Disposition [address] [place] [address]
== END 2017-03-03 16:20 | disposition home health service (06) | DRG 560 ==
PROVIDERS: ADMIT Internal Medicine; ATTEND Internal Medicine